=== PATIENT | female | born 1940 | race Two or more races ===

== ENCOUNTER 2018-07-06 12:05 | Inpatient (IN) | payer MEDICARE, MEDICAID ==
[2018-07-06] MEDS: INSULIN LISPRO 100 UNIT/ML VIAL SUBQ SCH (21:51)
[2018-07-06 22:33] LABS: % EOSINOPHILS 1.2 % (0.0-5.0); % LYMPHOCYTES 9.7 % (20.0-50.0); % MONOCYTES 5.7 % (2.0-10.0); % NEUTROPHILS 83.4 % (40.0-80.0); EOSINOPHILE ABSOLUTE 0.2 Th/cmm (0.1-0.4); HEMATOCRIT 32.4 % (41.0-60); HEMOGLOBIN 10.6 gm/dL (12-16); LYMPHOCYTE ABSOLUTE 1.4 Th/cmm (1.5-3.0); MEAN CELL VOLUME 80.8 fl (81-100); MEAN CORPUSCULAR HEMOGLOBIN 26.5 pg (27.0-31.0); MEAN CORPUSCULAR HGB CONC 32.8 pg (28.0-36.0); MEAN PLATELET VOLUME 8.5 fl; MONOCYTE ABSOLUTE 0.8 Th/cmm (0.3-1.0); NEUTROPHILE ABSOLUTE 11.6 Th/cmm (1.8-8.0); PLATELET COUNT 290 Th/cmm (150-400); RED BLOOD COUNT 4.01 Mil/cmm (3.80-5.20); RED CELL DISTRIBUTION WIDTH 24.4 % (11.5-20.0)
[2018-07-06] MEDS: D5-0.45NS 1,000 ML IV SCH (22:40)
[2018-07-06 22:49] LABS: ALB/GLOB RATIO 1.4 (1.0-1.8); ALBUMIN 3.5 gm/dL (3.7-5.3); ALKALINE PHOSPHATASE 77 U/L (34-104); ANION GAP 16.8 (7.0-16.0); BILIRUBIN,TOTAL 0.6 mg/dL (0.3-1.0); BUN - UREA NITROGEN 44 mg/dL (7-25); CHLORIDE 118 mEq/L (98-107); CREATININE - SERUM 1.9 mg/dL (0.6-1.2); GLUCOSE 142 mg/dL (70-105); POTASSIUM SERUM 3.8 mEq/L (3.5-5.1); SGOT 12 U/L (13-39); SGPT/ALT 11 U/L (7-52); SODIUM SERUM 150 mEq/L (136-145); TOTAL PROTEIN,SERUM 6.1 gm/dL (6.0-8.3)
[2018-07-06] MEDS: Vancomycin HCL 250 mg /10mL UDC PO SCH (23:10)
--- NOTE | 2018-07-07 00:07 | Progress Notes ---
DATE: 07/06/2018 SUBJECTIVE: The patient seen, chart reviewed, discussed with staff. The patient unfortunately decompensating medically, diarrhea, dehydration and transferred to the medical surgical unit, remains confused and disoriented. States "I feel like I'm dying." Generally confused, disoriented, does not know where she is or what is going on. Wearing mittens, taking the mittens off, staff having to watch her very closely. Rambling nonsensically, speaking in a mixture of Afghan, Farsi. ASSESSMENT: The patient disoriented, confused, restless, appearing somewhat delirious. PLAN: Treat underlying medical issues, continue to monitor. The patient does seem to be somewhat calmer on a dosing of Seroquel. We will continue to monitor and followup, follow alongside the primary medical team. JOB# [id number]
[2018-07-07] MEDS ORDERED: Magnesium Hydroxide (MOM) 30 mL UDC PO PRN (09:20)
--- NOTE | 2018-07-07 09:38 | History & Physical ---
ADMIT DATE: 07/06/2018 PATIENT IDENTIFICATION: A 77-year-old female. CHIEF COMPLAINT: Transferred to medical unit after noted to have abnormal labs for this patient. HISTORY OF PRESENT ILLNESS: A 77-year-old [place] German female admitted at geriatric psychiatric unit after the patient had a drug overdose and I was following this patient at [facility] for medical management where it was noted that the patient was having extremely poor p.o. intake with abnormal behavior. The patient was noted to have elevated sodium of 148 with creatinine of 1.8, which was substantially elevated from baseline. The patient was transferred to Geriatric Medical Floor after the patient needed to have management of medical illness, which cannot be managed at [facility]. The patient was also noted to have 4-5 bowel movements as well. PAST MEDICAL HISTORY: Remarkable for: 1. Chronic kidney disease. 2. Hypertension. 3. Hyperlipidemia. 4. DJD. 5. Diabetes mellitus. 6. Osteoporosis. 7. History of atrial fibrillation. 8. Diastolic dysfunction. MEDICATIONS: List has been reviewed and reconciled appropriately. ALLERGIES: THE PATIENT IS ALLERGIC TO ASPIRIN, CIPROFLOXACIN, LEVAQUIN AND PENICILLIN. SOCIAL HISTORY: The patient was residing in a [facility] prior to coming to the hospital. No smoking or alcohol use. FAMILY MEDICAL HISTORY: Unknown. REVIEW OF SYSTEMS: Unable to get meaningful history from the patient. PHYSICAL EXAMINATION: GENERAL: A 77-year-old, alert, awake, lying in the bed with talking to herself and not answering question appropriately today. VITAL SIGNS: Temperature is 99, pulse is 62, respiratory rate 18, blood pressure is 110/80. HEENT: Normocephalic, atraumatic. Extraocular muscles are intact. Multiple absent teeth noted. Tongue was pink and dry. NECK: Supple, no JVD. No hepatojugular reflux. No lymphadenopathy, thyromegaly or carotid bruit. HEART: Both heart sounds are irregularly irregular. Grade 2/6 systolic murmur noted. CHEST: Lung equal in expansion with no expiratory wheezing. ABDOMEN: Soft. No guarding, no rigidity. Bowel sounds present. No palpable mass. EXTREMITIES: No edema, no calf tenderness. NEUROLOGIC: Alert, awake, following commands, moving upper and lower extremities without any difficulty. AVAILABLE DIAGNOSTIC DATA: White count of 14, hemoglobin 10.6 and platelet count of 290. Sodium 150, potassium of 3.8, BUN and creatinine is 44 and 1.9, glucose of 148, albumin of 3.5. Stool for C. diff was reported was negative. CLINICAL IMPRESSION: 1. Hypernatremia. 2. Acute on chronic kidney disease. 3. Diarrhea. 4. Diabetes mellitus. 5. Hypertension. 6. History of atrial fibrillation. 7. History of cerebrovascular accident. 8. Degenerative joint disease. 9. Psychotic disorder 10. High risk for fall. 11. Osteoporosis. 12. Hyperlipidemia. PLAN: 1. The patient will be admitted to medical floor. 2. IV fluid. 3. Psych consult. 4. Nephrology consult. 5. Empirically vancomycin. 6. Repeat stool study. 7. Monitor labs. 8. Appropriate home medicine reconciliation. 9. General nursing care. 10. Care plan reviewed and discussed with staff. JOB# [id number]
[2018-07-07] MEDS: Vancomycin HCL 250 mg /10mL UDC PO SCH ×4 (10:06→22:24)
[2018-07-07] MEDS: INSULIN LISPRO 100 UNIT/ML VIAL SUBQ SCH (10:13)
[2018-07-07] MEDS: D5-0.45NS 1,000 ML IV SCH (13:13)
[2018-07-07] MEDS: Ferrous Sulfate 325 MG TAB PO SCH (16:09)
[2018-07-07] MEDS: Zinc Oxide Ointment 60 gm TP SCH (16:29)
[2018-07-07] MEDS ORDERED: Acetaminophen 160 MG/5 ML UDC PO PRN (21:25)
--- NOTE | 2018-07-08 00:43 | Progress Notes ---
DATE: 07/07/2018 SUBJECTIVE: A 77-year-old female currently in the Geropsych Unit, extremely poor p.o. intake, elevated sodium. The patient with history of chronic kidney disease, hypertension, hyperlipidemia, DJD, diabetes, osteoporosis, history of atrial fibrillation, and diastolic dysfunction. ALLERGIES: ASPIRIN, CIPRO, LEVAQUIN, PENICILLIN. On [id number], the patient is asking for help and noted to be confused, disoriented. The patient is currently confused, disoriented, yelling, in restrains, unruly, appears quite delirious. ASSESSMENT: Ongoing safety concerns, agitation. We will stop the Abilify. I will be titrating her dose of Seroquel. PLAN: We will attempt to reorient the patient today and we will attempt to get the patient out of restrains as soon as possible. I am trying to speak with the patient, but she is speaking in Malaysian just ruminative, asking for help over and over again. Unfortunately, I am not really able to have any sort of conversation with the patient either in Malaysian or in Farsi. JOB# [id number]
[2018-07-08 00:56] LABS: URINE SOURCE CATH
[2018-07-08 01:00] LABS: URINE BILIRUBIN NEGATIVE (NEGATIVE); URINE BLOOD MODERATE (NEGATIVE); URINE GLUCOSE (UA) NEGATIVE (NEGATIVE); URINE KETONE NEGATIVE (NEGATIVE); URINE LEUKOCYTE ESTERASE LARGE (NEGATIVE); URINE MICROSCOPIC INDICATED? YES; URINE NITRATE NEGATIVE (NEGATIVE); URINE PH 8.5 (4.6 - 8.0); URINE PROTEIN >=300 mg/dL (NEGATIVE)
[2018-07-08] MEDS: D5-0.45NS 1,000 ML IV SCH (04:07)
[2018-07-08 05:39] LABS: EOSINOPHIL SMEAR SOURCE URINE; EOSINOPHILS SMEAR COUNT NONE SEEN (NONE SEEN)
[2018-07-08 06:52] LABS: HEMATOCRIT 35.1 % (41.0-60); HEMOGLOBIN 11.2 gm/dL (12-16); MEAN CELL VOLUME 81.1 fl (81-100); MEAN CORPUSCULAR HEMOGLOBIN 25.8 pg (27.0-31.0); MEAN CORPUSCULAR HGB CONC 31.8 pg (28.0-36.0); MEAN PLATELET VOLUME 9.4 fl; PLATELET COUNT 279 Th/cmm (150-400); RED BLOOD COUNT 4.32 Mil/cmm (3.80-5.20); RED CELL DISTRIBUTION WIDTH 23.2 % (11.5-20.0)
[2018-07-08 07:37] LABS: ALB/GLOB RATIO 1.1 (1.0-1.8); ALBUMIN 3.6 gm/dL (3.7-5.3); ALKALINE PHOSPHATASE 78 U/L (34-104); ANION GAP 17.3 (7.0-16.0); BILIRUBIN,TOTAL 0.9 mg/dL (0.3-1.0); BUN - UREA NITROGEN 38 mg/dL (7-25); CALCIUM SERUM 9.1 mg/dL (8.6-10.3); CARBON DIOXIDE 20.1 mEq/L (21.0-31.0); CHLORIDE 116 mEq/L (98-107); CREATININE - SERUM 1.5 mg/dL (0.6-1.2); GLUCOSE 150 mg/dL (70-105); MAGNESIUM 1.8 mg/dL (1.9-2.7); PHOSPHOROUS 2.8 mg/dL (2.5-5.0); POTASSIUM SERUM 3.4 mEq/L (3.5-5.1); SGOT 13 U/L (13-39); SGPT/ALT 13 U/L (7-52); SODIUM SERUM 150 mEq/L (136-145); URIC ACID 8.2 mg/dL (2.3-6.6)
[2018-07-08 08:17] LABS: WHITE BLOOD COUNT 15.2 Th/cmm (4.8-10.8)
[2018-07-08] MEDS: INSULIN LISPRO 100 UNIT/ML VIAL SUBQ SCH (09:06)
[2018-07-08] MEDS: Ferrous Sulfate 325 MG TAB PO SCH ×2 (09:07→16:54)
[2018-07-08] MEDS: Pantoprazole 40 mg/Packet PO SCH (09:07)
[2018-07-08] MEDS: Vancomycin HCL 250 mg /10mL UDC PO SCH ×4 (09:21→21:22)
[2018-07-08 10:15] LABS: URINE CLARITY CLOUDY (CLEAR); URINE COLOR YELLOW
[2018-07-08 10:30] LABS: URINE EPITHELIAL CELLS NONE SEEN /lpf (FEW); URINE WBC 25-50 /hpf (0-5)
[2018-07-08 10:31] LABS: URINE BACTERIA MANY /hpf (NONE SEEN)
[2018-07-08 11:39] LABS: BAND NEUTROPHILE 0 % (0-10); BASOPHIL 0 % (0-3); EOSINOPHIL 1 % (0-5); LYMPHOCYTE 10 % (20-50); MONOCYTE 5 % (2-10); NEUTROPHILS 84 % (40-80)
[2018-07-08] MEDS: Potassium Chloride 20 mEq ER Tab PO ONE ×2 (14:06→14:13)
--- NOTE | 2018-07-08 14:13 | General Progress Note ---
Subjective - Review of Systems Service Date: 07/08/18 Subjective: sleeping, comfortable Objective - Results Result Diagrams: 07/08/18 06:05 07/08/18 06:05 Recent Labs: Laboratory Last Values WBC 15.2 Th/cmm (4.8-10.8) H 07/08/18 06:05 RBC 4.32 Mil/cmm (3.80-5.20) 07/08/18 06:05 Hgb 11.2 gm/dL (12-16) L 07/08/18 06:05 Hct 35.1 % (41.0-60) L 07/08/18 06:05 MCV 81.1 fl (81-100) 07/08/18 06:05 MCH 25.8 pg (27.0-31.0) L 07/08/18 06:05 MCHC Differential 31.8 pg (28.0-36.0) 07/08/18 06:05 RDW 23.2 % (11.5-20.0) H 07/08/18 06:05 Plt Count 279 Th/cmm (150-400) 07/08/18 06:05 MPV 9.4 fl 07/08/18 06:05 Add Manual Diff YES 07/08/18 06:05 Neutrophils % [employer]PERATOR 07/08/18 06:05 Band Neutrophils % 0 % (0-10) 07/08/18 06:05 Lymphocytes % [employer] OPERATOR 07/08/18 06:05 Monocytes % [employer] M[employer] OPERATOR 07/08/18 06:05 Eosinophils % [employer] OPERATOR 07/08/18 06:05 Basophils % [employer] OPERATOR 07/08/18 06:05 Neutrophils (Manual) 84 % (40-80) H 07/08/18 06:05 Lymphocytes 10 % (20-50) L 07/08/18 06:05 Monocytes 5 % (2-10) 07/08/18 06:05 Eosinophils 1 % (0-5) 07/08/18 06:05 Basophils 0 % (0-3) 07/08/18 06:05 Eos Smear Source URINE 07/08/18 00:00 Eos Smear Total Cells NONE SEEN (NONE SEEN) 07/08/18 00:00 Sodium 150 mEq/L (136-145) H 07/08/18 06:05 Potassium 3.4 mEq/L (3.5-5.1) L 07/08/18 06:05 Chloride 116 mEq/L (98-107) H 07/08/18 06:05 Carbon Dioxide 20.1 mEq/L (21.0-31.0) L 07/08/18 06:05 Anion Gap 17.3 (7.0-16.0) H 07/08/18 06:05 BUN 38 mg/dL (7-25) H 07/08/18 06:05 Creatinine 1.5 mg/dL (0.6-1.2) H 07/08/18 06:05 Est GFR ( Amer) TNP 07/08/18 06:05 Est GFR (Non-Af Amer) TNP 07/08/18 06:05 BUN/Creatinine Ratio 25.3 07/08/18 06:05 Glucose 150 mg/dL (70-105) H 07/08/18 06:05 POC Glucose 152 MG/DL (70 - 105) H 07/08/18 09:06 Uric Acid 8.2 mg/dL (2.3-6.6) H 07/08/18 06:05 Calcium 9.1 mg/dL (8.6-10.3) 07/08/18 06:05 Phosphorus 2.8 mg/dL (2.5-5.0) 07/08/18 06:05 Magnesium 1.8 mg/dL (1.9-2.7) L 07/08/18 06:05 Total Bilirubin 0.9 mg/dL (0.3-1.0) 07/08/18 06:05 AST 13 U/L (13-39) 07/08/18 06:05 ALT 13 U/L (7-52) 07/08/18 06:05 Alkaline Phosphatase 78 U/L (34-104) 07/08/18 06:05 Total Protein 7.0 gm/dL (6.0-8.3) 07/08/18 06:05 Albumin 3.6 gm/dL (3.7-5.3) L 07/08/18 06:05 Globulin 3.4 gm/dL 07/08/18 06:05 Albumin/Globulin Ratio 1.1 (1.0-1.8) 07/08/18 06:05 TSH 0.64 uIU/ml (0.34-5.60) 07/08/18 06:05 Urine Source CATH 07/08/18 00:00 Urine Color YELLOW 07/08/18 00:00 Urine Clarity CLOUDY (CLEAR) H 07/08/18 00:00 Urine pH 8.5 (4.6 - 8.0) 07/08/18 00:00 Ur Specific [place] <= 1.005 (1.005-1.030) 07/08/18 00:00 Urine Protein >=300 mg/dL (NEGATIVE) 07/08/18 00:00 Urine Glucose (UA) NEGATIVE mg/dL (NEGATIVE) 07/08/18 00:00 Urine Ketones NEGATIVE mg/dL (NEGATIVE) 07/08/18 00:00 Urine Blood MODERATE (NEGATIVE) H 07/08/18 00:00 Urine Nitrate NEGATIVE (NEGATIVE) 07/08/18 00:00 Urine Bilirubin NEGATIVE (NEGATIVE) 07/08/18 00:00 Urine Urobilinogen 1.0 E.U./dL (0.2 - 1.0) 07/08/18 00:00 Ur Leukocyte Esterase LARGE (NEGATIVE) H 07/08/18 00:00 Urine RBC 2-5 /hpf (0-5) 07/08/18 00:00 Urine WBC 25-50 /hpf (0-5) H 07/08/18 00:00 Ur Epithelial Cells NONE SEEN /lpf (FEW) 07/08/18 00:00 Urine Bacteria MANY /hpf (NONE SEEN) H 07/08/18 00:00 Ur Random Sodium 49 mmol/L 07/08/18 00:00 Urine Creatinine 309.0 mg/dl (28.0-217.0) H 07/08/18 00:00 - Physical Exam Vitals and I&O: Vital Signs Temp 98.7 F 07/08/18 11:54 Pulse 63 07/08/18 11:54 Resp 19 07/08/18 11:54 BP 167/58 07/08/18 11:54 Pulse Ox 96 07/08/18 11:54 Intake & Output 07/07/18 07/08/18 07/08/18 18:59 06:59 18:59 Intake Total 1250 1060 Output Total 80 Balance 1250 980 Weight (lbs) 64.274 kg 45.359 kg Intake: Intake, IV Amount 1000 1000 D5-0.45NS 1,000 ml @ 70 1000 1000 mls/hr IV .[id number] [facility] Rx #:[id number] Oral 250 60 Output: Urine 80 Other: # Voids 3 # Bowel Movements 3 Stool Characteristics Soft Soft Liquid Liquid Brown Brown Weight Source Bedscale Estimated Active Medications: Current Medications Acetaminophen (Tylenol Children) 320 mg PO Q6H PRN PRN Reason: Pain (Mild) Stop: 09/05/18 21:24 Atorvastatin Calcium (Lipitor) 80 mg PO HS [facility]; Protocol Stop: 09/05/18 20:59 Last Admin: 07/07/18 22:24 Dose: 80 mg Cholecalciferol (Vitamin D3) 2,000 iu PO DAILY [facility] Stop: 09/06/18 08:59 Last Admin: 07/08/18 09:07 Dose: 2,000 iu Citric Acid/Sodium Citrate (Bicitra) 30 ml PO DAILY [facility] Stop: 09/05/18 19:29 Last Admin: 07/08/18 14:02 Dose: Not Given Clopidogrel Bisulfate (Plavix) 75 mg PO DAILY [facility] Stop: 09/06/18 08:59 Last Admin: 07/08/18 09:07 Dose: 75 mg Dextrose (Glutose 40%) 18.75 gm PO PRN PRN PRN Reason: Blood Glucose less than 70 Stop: 09/05/18 09:19 Ferrous Sulfate (Iron) 325 mg PO BID [facility] Stop: 09/05/18 16:59 Last Admin: 07/08/18 09:07 Dose: 325 mg Dextrose (D5w) 1,000 mls @ 75 mls/hr IV .[id number] [facility] Stop: 09/06/18 13:59 Insulin Human Lispro (Humalog) 0 unit SUBQ DAILY [facility]; Protocol Stop: 09/04/18 20:29 Last Admin: 07/08/18 09:06 Dose: Not Given Lamotrigine (Lamictal) 50 mg PO DAILY [facility]; Protocol Stop: 09/06/18 08:59 Last Admin: 07/08/18 09:07 Dose: 50 mg Lorazepam (Ativan) 0.5 mg PO Q4HR PRN; Protocol PRN Reason: Anxiety Stop: 09/05/18 09:19 Magnesium Hydroxide (Milk Of Magnesia) 30 ml PO HS PRN PRN Reason: Constipation Stop: 09/05/18 09:19 Pantoprazole Sodium (Protonix) 40 mg PO DAILY [facility] Stop: 09/06/18 08:59 Last Admin: 07/08/18 09:07 Dose: 40 mg Petrolatum (Zinc Oxide) 1 appl TP BID [facility] Stop: 09/05/18 16:59 Last Admin: 07/07/18 16:29 Dose: 1 appl Quetiapine Fumarate (Seroquel) 25 mg PO BID [facility]; Protocol Stop: 09/05/18 16:59 Last Admin: 07/08/18 09:06 Dose: 25 mg Thiamine HCl (Vitamin B1) 100 mg PO DAILY [facility] Stop: 09/06/18 08:59 Last Admin: 07/08/18 09:07 Dose: 100 mg Vancomycin HCl (Vancomycin Oral) 250 mg PO QID [facility] Stop: 09/04/18 20:59 Last Admin: 07/08/18 09:21 Dose: 250 mg Zolpidem Tartrate (Ambien) 5 mg PO HS PRN PRN Reason: Insomnia Stop: 09/05/18 09:19 General: No acute distress HEENT: Atraumatic, Mucous membr. moist/pink Neck: Supple, +2 carotid pulse wo bruit Cardiovascular: Regular rate, Normal S1, Normal S2 Lungs: Clear to auscultation Abdomen: Bowel sounds, Soft Extremities: no Edema Neurological: Sensation intact Skin: no Rash Psych/Mental Status: Mood NL Assessment/Plan - Assessment Assessment: SHEILA on CKD T2DM DJD Psychosis Microcytic Anemia - Plan Plan: Lab - Result Diagrams 07/08/18 06:05 07/08/18 06:05 Current Medications Acetaminophen (Tylenol Children) 320 mg PO Q6H PRN PRN Reason: Pain (Mild) Stop: 09/05/18 21:24 Atorvastatin Calcium (Lipitor) 80 mg PO HS [facility]; Protocol Stop: 09/05/18 20:59 Last Admin: 07/07/18 22:24 Dose: 80 mg Cholecalciferol (Vitamin D3) 2,000 iu PO DAILY [facility] Stop: 09/06/18 08:59 Last Admin: 07/08/18 09:07 Dose: 2,000 iu Citric Acid/Sodium Citrate (Bicitra) 30 ml PO DAILY [facility] Stop: 09/05/18 19:29 Last Admin: 07/08/18 14:02 Dose: Not Given Clopidogrel Bisulfate (Plavix) 75 mg PO DAILY [facility] Stop: 09/06/18 08:59 Last Admin: 07/08/18 09:07 Dose: 75 mg Dextrose (Glutose 40%) 18.75 gm PO PRN PRN PRN Reason: Blood Glucose less than 70 Stop: 09/05/18 09:19 Ferrous Sulfate (Iron) 325 mg PO BID [facility] Stop: 09/05/18 16:59 Last Admin: 07/08/18 09:07 Dose: 325 mg Dextrose (D5w) 1,000 mls @ 75 mls/hr IV .[id number] [facility] Stop: 09/06/18 13:59 Insulin Human Lispro (Humalog) 0 unit SUBQ DAILY [facility]; Protocol Stop: 09/04/18 20:29 Last Admin: 07/08/18 09:06 Dose: Not Given Lamotrigine (Lamictal) 50 mg PO DAILY [facility]; Protocol Stop: 09/06/18 08:59 Last Admin: 07/08/18 09:07 Dose: 50 mg Lorazepam (Ativan) 0.5 mg PO Q4HR PRN; Protocol PRN Reason: Anxiety Stop: 09/05/18 09:19 Magnesium Hydroxide (Milk Of Magnesia) 30 ml PO HS PRN PRN Reason: Constipation Stop: 09/05/18 09:19 Pantoprazole Sodium (Protonix) 40 mg PO DAILY [facility] Stop: 09/06/18 08:59 Last Admin: 07/08/18 09:07 Dose: 40 mg Petrolatum (Zinc Oxide) 1 appl TP BID [facility] Stop: 09/05/18 16:59 Last Admin: 07/07/18 16:29 Dose: 1 appl Quetiapine Fumarate (Seroquel) 25 mg PO BID [facility]; Protocol Stop: 09/05/18 16:59 Last Admin: 07/08/18 09:06 Dose: 25 mg Thiamine HCl (Vitamin B1) 100 mg PO DAILY [facility] Stop: 09/06/18 08:59 Last Admin: 07/08/18 09:07 Dose: 100 mg Vancomycin HCl (Vancomycin Oral) 250 mg PO QID [facility] Stop: 09/04/18 20:59 Last Admin: 07/08/18 09:21 Dose: 250 mg Zolpidem Tartrate (Ambien) 5 mg PO HS PRN PRN Reason: Insomnia Stop: 09/05/18 09:19 Lab - Result Diagrams 07/08/18 06:05 07/08/18 06:05 Kidney fnc gradually improving w/ BUN/CR of 38/1.5 Stool for C. diff negative per nurse switch to D5W refusing lunch & meds UA suggestive of UTI start Rocephin
[2018-07-08] MEDS ORDERED: Potassium Phosphate 20 MMOLE in Sodium Chloride 0.9% 250 ML IV ONE (14:25)
[2018-07-08] MEDS: Dextrose 5% 1,000 ML IV SCH (14:48)
--- NOTE | 2018-07-08 15:02 | Consultation ---
DATE OF CONSULTATION: 07/07/2018 ATTENDING PHYSICIAN: Steven William M.D. REASON FOR CONSULTATION: Electrolyte imbalance, fluid management and worsening kidney function. HISTORY OF PRESENT ILLNESS: This is a 77-year-old Afghan female with past medical history of chronic kidney disease, who was transferred from [facility] to [facility] because of abnormal labs. The patient was admitted at [facility] Unit because of drug overdose a few hours prior to admission, her oral intake had significantly diminished, along with development of diarrhea. She became more aggressive, restless, agitated, confused and disoriented. Labs drawn revealed a sodium of 148 and creatinine of 1.8. Thus, she was transferred to [facility] for further medical management. Her sodium level was 150, BUN/creatinine of 44/1.9 and CO2 of 19. White count was 14. PAST MEDICAL HISTORY: 1. Chronic kidney disease. 2. Essential hypertension. 3. Dyslipidemia. 4. DJD. 5. Type 2 diabetes mellitus. 6. Osteoporosis. 7. Chronic atrial fibrillation. 8. Compensated CHF with diastolic dysfunction. 9. History of psychosis. CURRENT MEDICATIONS: She is currently on acetaminophen, Abilify, atorvastatin, clopidogrel, ferrous sulfate, lamotrigine, Ativan, magnesium hydroxide, Protonix, quetiapine fumarate, thiamine, vancomycin, zinc oxide, zolpidem. ALLERGIES: ALLERGIC TO ASPIRIN, CIPROFLOXACIN. SOCIAL AND FAMILY HISTORY: I was not able to obtain directly from the patient because the patient mumbling both in Farsi as well as some in Sammarinese. REVIEW OF SYSTEMS: Again, I was not able to decipher from the patient because of the same reason. PHYSICAL EXAMINATION: GENERAL: The patient is awake, mumbling, not in any form of distress. VITAL SIGNS: Blood pressure is 143/57, pulse 52, temperature is 97.9 degrees. SKIN: Poor turgor, warm, no rash, no jaundice appreciated. HEENT: Head normocephalic, atraumatic. Eyes: Extraocular muscles intact, unable to assess pupils because the patient uncooperative. Anicteric sclerae. Nose: Midline nasal septum. Mouth: Dry mucosa. Poor dentition. NECK: Supple, no adenopathy, unable to assess for any bruits, no thyromegaly. CARDIOVASCULAR: S1, S2. No rub, but she does have a systolic murmur; point of maximal impulse fifth intercostal space, left midclavicular line. No abdominal or femoral bruits appreciated. LUNGS: Equal expansion, no use of accessory muscles. No supraclavicular retractions. Decreased breath sounds, few rhonchi, but no rales nor wheezes appreciated. BREASTS: Symmetrical without any discharge. ABDOMEN: Flat, soft, positive for bowel sounds. No bruits either diastolic or systolic. No pulsating mass. RECTAL: Deferred. GENITOURINARY: Normal appearing female genitalia. MUSCULOSKELETAL: No effusions present in her joints, but unable to assess her range of motion. EXTREMITIES: She has no evidence of edema, cyanosis nor clubbing, but unable to appreciate her pulses. NEUROLOGIC: As mentioned, the patient just kept on mumbling and rambling, so she refused to participate with neuro exam. LABORATORY DATA: Did reveal white count 14, hemoglobin 10.6, hematocrit 32.4, platelets 290. Sodium 150, potassium 3.8, chloride 118, CO2 is 19, BUN is 44, creatinine is 1.9, calcium 9, albumin 3.5. IMPRESSION: 1. Hypernatremia, possibly secondary to dehydration. 2. Acute kidney injury on chronic kidney disease. Chronic kidney disease likely secondary to diabetic nephropathy with longstanding history of diabetes and may have some underlying hypertensive nephrosclerosis. Acute kidney injury in this particular case is initially prerenal. As based on history, the patient has not been drinking fluids to replenish both sensible and insensible fluid losses, she also has ongoing diarrhea. Physical exam revealed poor skin turgor with dry oral mucosa. These are all suggestive of some underlying dehydration. Thus her prerenal azotemia may have progressed to acute tubular injury. 3. Psychosis. 4. Moderate malnutrition. 5. Anion gap metabolic acidosis with non-gap acidosis. 6. Bradycardia, etiology unknown. 7. Anemia of chronic disease. 8. Essential hypertension. 9. Dyslipidemia. 10. Degenerative joint disease. 11. Type 2 diabetes mellitus. 12. Osteoporosis. 13. Chronic atrial fibrillation. 14. Compensated congestive heart failure with diastolic dysfunction. PLAN: 1. Agree with IV hydration. 2. Encourage p.o. fluid intake. 3. Urinalysis. 4. Urine spot sodium, eosinophils, and creatinine. 5. Urine microalbumin to creatinine ratio. 6. Consider renal ultrasound if kidney function worsens because of difficulty of getting an ultrasound due to patient's behavior. 7. Start the patient on Bicitra. 8. Follow up electrolytes, urinalysis as well as TSH level. [facility]# [id number]
[2018-07-08] MEDS: Zinc Oxide Ointment 60 gm TP SCH (18:48)
[2018-07-09] MEDS: Dextrose 5% 1,000 ML IV SCH ×3 (01:46→17:14)
[2018-07-09 06:54] LABS: % EOSINOPHILS 0.4 % (0.0-5.0); % LYMPHOCYTES 8.7 % (20.0-50.0); % MONOCYTES 6.1 % (2.0-10.0); % NEUTROPHILS 84.8 % (40.0-80.0); EOSINOPHILE ABSOLUTE 0.1 Th/cmm (0.1-0.4); LYMPHOCYTE ABSOLUTE 1.3 Th/cmm (1.5-3.0); MEAN CELL VOLUME 81.4 fl (81-100); MEAN CORPUSCULAR HEMOGLOBIN 26.3 pg (27.0-31.0); MEAN CORPUSCULAR HGB CONC 32.3 pg (28.0-36.0); MEAN PLATELET VOLUME 9.1 fl; MONOCYTE ABSOLUTE 0.9 Th/cmm (0.3-1.0); PLATELET COUNT 286 Th/cmm (150-400); RED BLOOD COUNT 3.81 Mil/cmm (3.80-5.20); RED CELL DISTRIBUTION WIDTH 23.9 % (11.5-20.0)
--- NOTE | 2018-07-09 06:56 | Progress Notes ---
DATE: 07/08/2018 PATIENT'S IDENTIFICATION: A 77-year-old. SUBJECTIVE: The patient is seen and examined. The patient is lying in the bed. The patient has a very poor intake, diarrhea is still persistent, unable to get meaningful history from the patient. OBJECTIVE: VITAL SIGNS: On exam; temperature 98.7, pulse 63, respiratory rate 18, blood pressure 167/58. HEENT: No facial asymmetry. NECK: Supple. No JVD. HEART: Regular. CHEST: Lung equal in expansion, no expiratory wheezing. ABDOMEN: Soft. No guarding. No rigidity. Bowel sounds present. No palpable mass. EXTREMITIES: No edema. AVAILABLE DIAGNOSTIC DATA: Sodium 150, potassium 3.4, chloride 116, CO2 20.1, BUN and creatinine is 38 and 1.5. White count of 15.2, hemoglobin 11.2. CLINICAL IMPRESSIONS: 1. Hypernatremia. 2. Acute kidney injury. 3. Chronic kidney disease stage 3. 4. Diabetes mellitus. 5. Psychotic disorder. 6. Degenerative joint disease. 7. Chronic atrial fibrillation. 8. Debility. 9. Decline in self-care and mobility. PLAN: 1. Continue IV hydration. 2. Monitor lab. 3. Chronic kidney disease management. 4. Diabetes management. 5. General nursing care. 6. Follow lab. 7. Follow statistical consultant recommendation. 8. Care plan reviewed and discussed with staff. JOB# [id number]
[2018-07-09 06:59] LABS: WHITE BLOOD COUNT 15.3 Th/cmm (4.8-10.8)
[2018-07-09 07:00] LABS: ALB/GLOB RATIO 1.1 (1.0-1.8); ALBUMIN 3.2 gm/dL (3.7-5.3); ALKALINE PHOSPHATASE 70 U/L (34-104); ANION GAP 12.8 (7.0-16.0); BILIRUBIN,TOTAL 0.8 mg/dL (0.3-1.0); BUN - UREA NITROGEN 33 mg/dL (7-25); CALCIUM SERUM 8.5 mg/dL (8.6-10.3); CARBON DIOXIDE 20.9 mEq/L (21.0-31.0); CHLORIDE 116 mEq/L (98-107); CREATININE - SERUM 1.3 mg/dL (0.6-1.2); GLUCOSE 141 mg/dL (70-105); POTASSIUM SERUM 3.7 mEq/L (3.5-5.1); SGOT 11 U/L (13-39); SGPT/ALT 12 U/L (7-52); SODIUM SERUM 146 mEq/L (136-145); TOTAL PROTEIN,SERUM 6.2 gm/dL (6.0-8.3)
--- NOTE | 2018-07-09 09:00 | Internal Medicine Prog Note ---
Internal Medicine Subjective - Subjective Service Date: 07/09/18 Patient seen and examined:: with staff, chart reviewed Patient is:: awake, verbal, in bed, agitated, other (unable to understand.) Patient Complaints of:: other (unable to understand.) Per staff patient has:: poor oral intake, other (still has dirrhea.) Internal Medicine Objective - Results Result Diagrams: 07/09/18 06:25 07/09/18 06:25 Recent Labs: Laboratory Last Values WBC 15.3 Th/cmm (4.8-10.8) H 07/09/18 06:25 RBC 3.81 Mil/cmm (3.80-5.20) 07/09/18 06:25 Hgb 10.0 gm/dL (12-16) L 07/09/18 06:25 Hct 31.0 % (41.0-60) L 07/09/18 06:25 MCV 81.4 fl (81-100) 07/09/18 06:25 MCH 26.3 pg (27.0-31.0) L 07/09/18 06:25 MCHC Differential 32.3 pg (28.0-36.0) 07/09/18 06:25 RDW 23.9 % (11.5-20.0) H 07/09/18 06:25 Plt Count 286 Th/cmm (150-400) 07/09/18 06:25 MPV 9.1 fl 07/09/18 06:25 Add Manual Diff YES 07/08/18 06:05 Neutrophils % 84.8 % (40.0-80.0) H 07/09/18 06:25 Band Neutrophils % 0 % (0-10) 07/08/18 06:05 Lymphocytes % 8.7 % (20.0-50.0) L 07/09/18 06:25 Monocytes % 6.1 % (2.0-10.0) 07/09/18 06:25 Eosinophils % 0.4 % (0.0-5.0) 07/09/18 06:25 Basophils % 0.0 % (0.0-2.0) 07/09/18 06:25 Neutrophils (Manual) 84 % (40-80) H 07/08/18 06:05 Lymphocytes 10 % (20-50) L 07/08/18 06:05 Monocytes 5 % (2-10) 07/08/18 06:05 Eosinophils 1 % (0-5) 07/08/18 06:05 Basophils 0 % (0-3) 07/08/18 06:05 Eos Smear Source URINE 07/08/18 00:00 Eos Smear Total Cells NONE SEEN (NONE SEEN) 07/08/18 00:00 Sodium 146 mEq/L (136-145) H 07/09/18 06:25 Potassium 3.7 mEq/L (3.5-5.1) 07/09/18 06:25 Chloride 116 mEq/L (98-107) H 07/09/18 06:25 Carbon Dioxide 20.9 mEq/L (21.0-31.0) L 07/09/18 06:25 Anion Gap 12.8 (7.0-16.0) 07/09/18 06:25 BUN 33 mg/dL (7-25) H 07/09/18 06:25 Creatinine 1.3 mg/dL (0.6-1.2) H 07/09/18 06:25 Est GFR ( Amer) TNP 07/09/18 06:25 Est GFR (Non-Af Amer) TNP 07/09/18 06:25 BUN/Creatinine Ratio 25.4 07/09/18 06:25 Glucose 141 mg/dL (70-105) H 07/09/18 06:25 POC Glucose 152 MG/DL (70 - 105) H 07/08/18 09:06 Uric Acid 8.2 mg/dL (2.3-6.6) H 07/08/18 06:05 Calcium 8.5 mg/dL (8.6-10.3) L 07/09/18 06:25 Phosphorus 2.8 mg/dL (2.5-5.0) 07/08/18 06:05 Magnesium 1.8 mg/dL (1.9-2.7) L 07/08/18 06:05 Total Bilirubin 0.8 mg/dL (0.3-1.0) 07/09/18 06:25 AST 11 U/L (13-39) L 07/09/18 06:25 ALT 12 U/L (7-52) 07/09/18 06:25 Alkaline Phosphatase 70 U/L (34-104) 07/09/18 06:25 Total Protein 6.2 gm/dL (6.0-8.3) 07/09/18 06:25 Albumin 3.2 gm/dL (3.7-5.3) L 07/09/18 06:25 Globulin 3.0 gm/dL 07/09/18 06:25 Albumin/Globulin Ratio 1.1 (1.0-1.8) 07/09/18 06:25 TSH 0.64 uIU/ml (0.34-5.60) 07/08/18 06:05 Urine Source CATH 07/08/18 00:00 Urine Color YELLOW 07/08/18 00:00 Urine Clarity CLOUDY (CLEAR) H 07/08/18 00:00 Urine pH 8.5 (4.6 - 8.0) 07/08/18 00:00 Ur Specific [place] <= 1.005 (1.005-1.030) 07/08/18 00:00 Urine Protein >=300 mg/dL (NEGATIVE) 07/08/18 00:00 Urine Glucose (UA) NEGATIVE mg/dL (NEGATIVE) 07/08/18 00:00 Urine Ketones NEGATIVE mg/dL (NEGATIVE) 07/08/18 00:00 Urine Blood MODERATE (NEGATIVE) H 07/08/18 00:00 Urine Nitrate NEGATIVE (NEGATIVE) 07/08/18 00:00 Urine Bilirubin NEGATIVE (NEGATIVE) 07/08/18 00:00 Urine Urobilinogen 1.0 E.U./dL (0.2 - 1.0) 07/08/18 00:00 Ur Leukocyte Esterase LARGE (NEGATIVE) H 07/08/18 00:00 Urine RBC 2-5 /hpf (0-5) 07/08/18 00:00 Urine WBC 25-50 /hpf (0-5) H 07/08/18 00:00 Ur Epithelial Cells NONE SEEN /lpf (FEW) 07/08/18 00:00 Urine Bacteria MANY /hpf (NONE SEEN) H 07/08/18 00:00 Ur Random Sodium 49 mmol/L 07/08/18 00:00 Urine Creatinine 309.0 mg/dl (28.0-217.0) H 07/08/18 00:00 - Physical Exam Vitals and I&O: Vital Signs Temp 99.0 F 07/09/18 05:00 Pulse 59 07/09/18 05:00 Resp 18 07/09/18 05:00 BP 136/79 07/09/18 05:00 Pulse Ox 96 07/09/18 04:00 Intake & Output 07/08/18 07/09/18 07/09/18 18:59 06:59 18:59 Intake Total 60 Output Total 4 Balance 56 Weight (lbs) 64.954 kg 64.954 kg Intake: Oral 60 Output: Urine 2 Stool 2 Other: # Voids 3 # Bowel Movements 2 Stool Characteristics Soft Soft Liquid Liquid Brown Brown Weight Source Bedscale Bedscale Active Medications: Current Medications Acetaminophen (Tylenol Children) 320 mg PO Q6H PRN PRN Reason: Pain (Mild) Stop: 09/05/18 21:24 Atorvastatin Calcium (Lipitor) 80 mg PO HS [facility]; Protocol Stop: 09/05/18 20:59 Last Admin: 07/08/18 21:21 Dose: Not Given Cholecalciferol (Vitamin D3) 2,000 iu PO DAILY [facility] Stop: 09/06/18 08:59 Last Admin: 07/08/18 09:07 Dose: 2,000 iu Citric Acid/Sodium Citrate (Bicitra) 30 ml PO DAILY [facility] Stop: 09/05/18 19:29 Last Admin: 07/08/18 14:02 Dose: Not Given Clopidogrel Bisulfate (Plavix) 75 mg PO DAILY [facility] Stop: 09/06/18 08:59 Last Admin: 07/08/18 09:07 Dose: 75 mg Dextrose (Glutose 40%) 18.75 gm PO PRN PRN PRN Reason: Blood Glucose less than 70 Stop: 09/05/18 09:19 Ferrous Sulfate (Iron) 325 mg PO BID [facility] Stop: 09/05/18 16:59 Last Admin: 07/08/18 16:54 Dose: Not Given Dextrose (D5w) 1,000 mls @ 75 mls/hr IV .[id number] [facility] Stop: 09/06/18 13:59 Last Admin: 07/09/18 01:46 Dose: 75 mls/hr Ceftriaxone Sodium 1 gm/ (Dextrose) 50 mls @ 100 mls/hr IV Q24H [facility] Stop: 09/06/18 14:14 Last Admin: 07/08/18 14:37 Dose: 100 mls/hr Insulin Human Lispro (Humalog) 0 unit SUBQ DAILY [facility]; Protocol Stop: 09/04/18 20:29 Last Admin: 07/08/18 09:06 Dose: Not Given Lamotrigine (Lamictal) 50 mg PO DAILY [facility]; Protocol Stop: 09/06/18 08:59 Last Admin: 07/08/18 09:07 Dose: 50 mg Lorazepam (Ativan) 0.5 mg PO Q4HR PRN; Protocol PRN Reason: Anxiety Stop: 09/05/18 09:19 Magnesium Hydroxide (Milk Of Magnesia) 30 ml PO HS PRN PRN Reason: Constipation Stop: 09/05/18 09:19 Nystatin (Nystatin) 100,000 units PO TID [facility] Stop: 09/07/18 08:59 Pantoprazole Sodium (Protonix) 40 mg PO DAILY [facility] Stop: 09/06/18 08:59 Last Admin: 07/08/18 09:07 Dose: 40 mg Petrolatum (Zinc Oxide) 1 appl TP BID [facility] Stop: 09/05/18 16:59 Last Admin: 07/08/18 18:48 Dose: Not Given Quetiapine Fumarate (Seroquel) 25 mg PO BID [facility]; Protocol Stop: 09/05/18 16:59 Last Admin: 07/08/18 16:54 Dose: Not Given Thiamine HCl (Vitamin B1) 100 mg PO DAILY [facility] Stop: 09/06/18 08:59 Last Admin: 07/08/18 09:07 Dose: 100 mg Vancomycin HCl (Vancomycin Oral) 250 mg PO QID [facility] Stop: 09/04/18 20:59 Last Admin: 07/08/18 21:22 Dose: Not Given Zolpidem Tartrate (Ambien) 5 mg PO HS PRN PRN Reason: Insomnia Stop: 09/05/18 09:19 General: alert, thin HEENT: NC/AT, PERRLA, EOMI, poor dentition Neck: Supple, No JVD, No thyromegaly Lungs: CTAB Cardiovascular: Normal S1, Normal S2 Abdomen: soft, positive bowel sound Extremities: clear, pedal pulses Neurological: alert Other physical findings: Excoriartion around perineal area. Internal Medicine Assmt/Plan - Assessment Assessment: Hypernatremia Acute kidney injury. Diarrhea. Psych disorder. Diabetes. Hypertension. Chronic A Fib. Dermatitis and varghese due to diarrhea. Alzheimer's Dementia. S/P drug overdose. DJD Debility. Fall risk. - Plan Plan: IVF. Psych follow up. Renal consult. Follow lab. General nursing care. Diabetes management. Chronic disease management. Symptoms control. Medication management. PT and OT. Dysphagia diet. Repeat stool for c diff. PO vancomycin. Locally Nystain ointment. Continue current care. Discussed with staff. Nutritional Asmnt/Malnutr-PDOC - Dietary Evaluation Malnutrition Findings (Please click <Entered> for more info): Nutritional Asmnt/Malnutrition Start: 07/08/18 15: 04 Text: Status: Complete Freq: Protocol: Document 07/08/18 15:04 LCHENG (Rec: 07/08/18 15:39 LCHENG [email or web address]) Nutritional Asmnt/Malnutrition Patient General Information Nutritional Screening High Risk Diagnosis dehydration Pertinent Medical Hx/Surgical Hx CKD, HTN, hyperlipidemia, DJD, DM, osteoporosis, a fib, distolic dysfunction Subjective Information Pt seen in bed on restrains, agitated and confused. Per nurse note, pt refused PO potassium. According to EMR, pt consumed 75% x 2 meals yesterday. Current Diet Order/ Nutrition Support pureed, nectar thick liquid Pertinent Medications lipitor, vit D3, iron, humalog , D5w, lamictal, protonix, k phos, vit B1, vancomycin Pertinent Labs 07/08 Na 150, K 3.4, Cl 116, BUN 38, Cr 1.5, Glu 150, POC 152 07/06 Na 150, Cl 118, BUN 44, Cr 1.9, Glu 142, POC 148 Nutritional Hx/Data Height 1.57 m Height (Calculated Centimeters) 157.5 Current Weight (lbs) 45.359 kg Weight (Calculated Kilograms) 45.4 Weight (Calculated Grams) 68187.2 [place] Body Weight 110 Body Mass Index (BMI) 18.3 Weight Status Underweight GI Symptoms GI Symptoms None Last BM 07/07 x 3 Difficult in: None Skin Integrity/Comment: intact. yarelis 14 Current %PO Good (75-100%) Estimated Nutritional Goals BEE in Kcals: Using Current wt Calories/Kcals/Kg 27-32 Kcals Calculated 8872-5509 Protein: Using Current wt Protein g/k Protein Calculated 50 Fluid: ml 1215-1440ml (1ml/kcal) Nutritional Problem 1. Problem Problem altered nutrition related labs Etiology electrolytes/fluid imbalance, hyperglycemia Signs/Symptoms: Na 150, K 3.4, Cl 116, BUN 38, Cr 1.5, Glu 150, POC 152 Malnutrition Alert Is there a minimum of two criteria No selected? Query Text:Check all the applicable criteria. A minimum of two criteria are recommended for diagnosis of either severe or non-severe malnutrition. Malnutrition Related to Morbid Obesity Malnutrition related to morbid obesity No Intervention/Recommendation Comments 1. Continue with pureed nectar thick diet as ordered. Recommend to add CCHO-60gm diet for optimal glycemic control. 2. Monitor PO intake, wt, labs and skin integrity 3. F/U as high risk in 2-3 days Expected Outcomes/Goals Expected Outcomes/Goals 1. PO intake to meet at least 75% of nutritional needs. 2. Wt stability, skin to remain intact, labs to approach WNL.
[2018-07-09] MEDS: Zinc Oxide Ointment 60 gm TP SCH ×2 (09:15→17:16)
[2018-07-09] MEDS: Ferrous Sulfate 325 MG TAB PO SCH ×2 (09:46→17:18)
[2018-07-09] MEDS: Pantoprazole 40 mg/Packet PO SCH (09:46)
[2018-07-09] MEDS: INSULIN LISPRO 100 UNIT/ML VIAL SUBQ SCH (09:46)
[2018-07-09] MEDS: Vancomycin HCL 250 mg /10mL UDC PO SCH ×4 (09:51→20:55)
[2018-07-09] MEDS: NYSTATIN 100000 UNITS/GM POWD TP SCH ×3 (10:30→20:59)
--- NOTE | 2018-07-09 12:40 | Progress Notes ---
DATE: 07/08/2018 The patient is currently in the Med-Surg Unit, still appearing quite delirious, in restraints, AO to name only. She has no idea where she is. She does not know what is going on. She is very confused, disoriented. Attempted to speak with her in [place] as well as in [place]ars[place], but she has no idea where she is. She only knows her name, she does not know where she is or what is going on. I did speak with nursing staff, ongoing diarrhea. The patient moving around a lot, unable to be cared for out of restraints. Recommend avoidance of opiates. Recommend avoidance of benzodiazepines. Treat underlying infection. Continue Seroquel, consider dose increase of Seroquel. JOB# [id number]
--- NOTE | 2018-07-09 14:46 | General Progress Note ---
Subjective - Review of Systems Service Date: 07/09/18 Subjective: sleeping, comfortable Objective - Results Result Diagrams: 07/09/18 06:25 07/09/18 06:25 Recent Labs: Laboratory Last Values WBC 15.3 Th/cmm (4.8-10.8) H 07/09/18 06:25 RBC 3.81 Mil/cmm (3.80-5.20) 07/09/18 06:25 Hgb 10.0 gm/dL (12-16) L 07/09/18 06:25 Hct 31.0 % (41.0-60) L 07/09/18 06:25 MCV 81.4 fl (81-100) 07/09/18 06:25 MCH 26.3 pg (27.0-31.0) L 07/09/18 06:25 MCHC Differential 32.3 pg (28.0-36.0) 07/09/18 06:25 RDW 23.9 % (11.5-20.0) H 07/09/18 06:25 Plt Count 286 Th/cmm (150-400) 07/09/18 06:25 MPV 9.1 fl 07/09/18 06:25 Add Manual Diff YES 07/08/18 06:05 Neutrophils % 84.8 % (40.0-80.0) H 07/09/18 06:25 Band Neutrophils % 0 % (0-10) 07/08/18 06:05 Lymphocytes % 8.7 % (20.0-50.0) L 07/09/18 06:25 Monocytes % 6.1 % (2.0-10.0) 07/09/18 06:25 Eosinophils % 0.4 % (0.0-5.0) 07/09/18 06:25 Basophils % 0.0 % (0.0-2.0) 07/09/18 06:25 Neutrophils (Manual) 84 % (40-80) H 07/08/18 06:05 Lymphocytes 10 % (20-50) L 07/08/18 06:05 Monocytes 5 % (2-10) 07/08/18 06:05 Eosinophils 1 % (0-5) 07/08/18 06:05 Basophils 0 % (0-3) 07/08/18 06:05 Eos Smear Source URINE 07/08/18 00:00 Eos Smear Total Cells NONE SEEN (NONE SEEN) 07/08/18 00:00 Sodium 146 mEq/L (136-145) H 07/09/18 06:25 Potassium 3.7 mEq/L (3.5-5.1) 07/09/18 06:25 Chloride 116 mEq/L (98-107) H 07/09/18 06:25 Carbon Dioxide 20.9 mEq/L (21.0-31.0) L 07/09/18 06:25 Anion Gap 12.8 (7.0-16.0) 07/09/18 06:25 BUN 33 mg/dL (7-25) H 07/09/18 06:25 Creatinine 1.3 mg/dL (0.6-1.2) H 07/09/18 06:25 Est GFR ( Amer) TNP 07/09/18 06:25 Est GFR (Non-Af Amer) TNP 07/09/18 06:25 BUN/Creatinine Ratio 25.4 07/09/18 06:25 Glucose 141 mg/dL (70-105) H 07/09/18 06:25 POC Glucose 152 MG/DL (70 - 105) H 07/08/18 09:06 Uric Acid 8.2 mg/dL (2.3-6.6) H 07/08/18 06:05 Calcium 8.5 mg/dL (8.6-10.3) L 07/09/18 06:25 Phosphorus 2.8 mg/dL (2.5-5.0) 07/08/18 06:05 Magnesium 1.7 mg/dL (1.9-2.7) L 07/09/18 06:25 Total Bilirubin 0.8 mg/dL (0.3-1.0) 07/09/18 06:25 AST 11 U/L (13-39) L 07/09/18 06:25 ALT 12 U/L (7-52) 07/09/18 06:25 Alkaline Phosphatase 70 U/L (34-104) 07/09/18 06:25 Total Protein 6.2 gm/dL (6.0-8.3) 07/09/18 06:25 Albumin 3.2 gm/dL (3.7-5.3) L 07/09/18 06:25 Globulin 3.0 gm/dL 07/09/18 06:25 Albumin/Globulin Ratio 1.1 (1.0-1.8) 07/09/18 06:25 TSH 0.64 uIU/ml (0.34-5.60) 07/08/18 06:05 Urine Source CATH 07/08/18 00:00 Urine Color YELLOW 07/08/18 00:00 Urine Clarity CLOUDY (CLEAR) H 07/08/18 00:00 Urine pH 8.5 (4.6 - 8.0) 07/08/18 00:00 Ur Specific [place] <= 1.005 (1.005-1.030) 07/08/18 00:00 Urine Protein >=300 mg/dL (NEGATIVE) 07/08/18 00:00 Urine Glucose (UA) NEGATIVE mg/dL (NEGATIVE) 07/08/18 00:00 Urine Ketones NEGATIVE mg/dL (NEGATIVE) 07/08/18 00:00 Urine Blood MODERATE (NEGATIVE) H 07/08/18 00:00 Urine Nitrate NEGATIVE (NEGATIVE) 07/08/18 00:00 Urine Bilirubin NEGATIVE (NEGATIVE) 07/08/18 00:00 Urine Urobilinogen 1.0 E.U./dL (0.2 - 1.0) 07/08/18 00:00 Ur Leukocyte Esterase LARGE (NEGATIVE) H 07/08/18 00:00 Urine RBC 2-5 /hpf (0-5) 07/08/18 00:00 Urine WBC 25-50 /hpf (0-5) H 07/08/18 00:00 Ur Epithelial Cells NONE SEEN /lpf (FEW) 07/08/18 00:00 Urine Bacteria MANY /hpf (NONE SEEN) H 07/08/18 00:00 Ur Random Sodium 49 mmol/L 07/08/18 00:00 Urine Creatinine 309.0 mg/dl (28.0-217.0) H 07/08/18 00:00 Microalb/Creat Ratio 317.2 mg/g creat (0.0-30.0) H 07/08/18 00:00 - Physical Exam Vitals and I&O: Vital Signs Temp 99.2 F 07/09/18 13:00 Pulse 60 07/09/18 13:00 Resp 18 07/09/18 13:00 BP 125/70 07/09/18 13:00 Pulse Ox 96 03/28/19 12:00 Intake & Output 07/08/18 07/09/18 07/09/18 18:59 06:59 18:59 Intake Total 60 Output Total 4 Balance 56 Weight (lbs) 64.954 kg 64.954 kg Intake: Oral 60 Output: Urine 2 Stool 2 Other: # Voids 3 # Bowel Movements 2 Stool Characteristics Soft Soft Soft Liquid Liquid Brown Brown Brown Weight Source Bedscale Bedscale Active Medications: Current Medications Acetaminophen (Tylenol Children) 320 mg PO Q6H PRN PRN Reason: Pain (Mild) Stop: 09/05/18 21:24 Atorvastatin Calcium (Lipitor) 80 mg PO HS [facility]; Protocol Stop: 09/05/18 20:59 Last Admin: 07/08/18 21:21 Dose: Not Given Cholecalciferol (Vitamin D3) 2,000 iu PO DAILY [facility] Stop: 09/06/18 08:59 Last Admin: 07/09/18 09:45 Dose: 2,000 iu Citric Acid/Sodium Citrate (Bicitra) 30 ml PO DAILY [facility] Stop: 09/05/18 19:29 Last Admin: 07/09/18 09:50 Dose: 30 ml Clopidogrel Bisulfate (Plavix) 75 mg PO DAILY [facility] Stop: 09/06/18 08:59 Last Admin: 07/09/18 09:45 Dose: 75 mg Dextrose (Glutose 40%) 18.75 gm PO PRN PRN PRN Reason: Blood Glucose less than 70 Stop: 09/05/18 09:19 Ferrous Sulfate (Iron) 325 mg PO BID [facility] Stop: 09/05/18 16:59 Last Admin: 07/09/18 09:46 Dose: 325 mg Dextrose (D5w) 1,000 mls @ 75 mls/hr IV .[id number] [facility] Stop: 09/06/18 13:59 Last Admin: 07/09/18 01:46 Dose: 75 mls/hr Ceftriaxone Sodium 1 gm/ (Dextrose) 50 mls @ 100 mls/hr IV Q24H [facility] Stop: 09/06/18 14:14 Last Admin: 07/08/18 14:37 Dose: 100 mls/hr Insulin Human Lispro (Humalog) 0 unit SUBQ DAILY [facility]; Protocol Stop: 09/04/18 20:29 Last Admin: 07/09/18 09:46 Dose: Not Given Lamotrigine (Lamictal) 50 mg PO DAILY [facility]; Protocol Stop: 09/06/18 08:59 Last Admin: 07/09/18 09:45 Dose: 50 mg Lorazepam (Ativan) 0.5 mg PO Q4HR PRN; Protocol PRN Reason: Anxiety Stop: 09/05/18 09:19 Last Admin: 07/09/18 09:45 Dose: 0.5 mg Magnesium Hydroxide (Milk Of Magnesia) 30 ml PO HS PRN PRN Reason: Constipation Stop: 09/05/18 09:19 Nystatin (Nystop) 100 units TP TID [facility] Stop: 09/07/18 09:59 Pantoprazole Sodium (Protonix) 40 mg PO DAILY [facility] Stop: 09/06/18 08:59 Last Admin: 07/09/18 09:46 Dose: 40 mg Petrolatum (Zinc Oxide) 1 appl TP BID [facility] Stop: 09/05/18 16:59 Last Admin: 07/08/18 18:48 Dose: Not Given Quetiapine Fumarate (Seroquel) 25 mg PO BID [facility]; Protocol Stop: 09/05/18 16:59 Last Admin: 07/09/18 09:45 Dose: 25 mg Thiamine HCl (Vitamin B1) 100 mg PO DAILY [facility] Stop: 09/06/18 08:59 Last Admin: 07/09/18 09:45 Dose: 100 mg Vancomycin HCl (Vancomycin Oral) 250 mg PO QID [facility] Stop: 09/04/18 20:59 Last Admin: 07/09/18 09:51 Dose: 250 mg Zolpidem Tartrate (Ambien) 5 mg PO HS PRN PRN Reason: Insomnia Stop: 09/05/18 09:19 General: No acute distress HEENT: Atraumatic, Mucous membr. moist/pink Neck: Supple, +2 carotid pulse wo bruit Cardiovascular: Regular rate, Normal S1, Normal S2 Lungs: Clear to auscultation Abdomen: Bowel sounds, Soft Extremities: no Edema Neurological: Sensation intact Skin: no Rash Psych/Mental Status: Mood NL Assessment/Plan - Assessment Assessment: SHEILA on CKD T2DM DJD Psychosis Microcytic Anemia - Plan Plan: Lab - Result Diagrams 07/08/18 06:05 07/08/18 06:05 Current Medications Acetaminophen (Tylenol Children) 320 mg PO Q6H PRN PRN Reason: Pain (Mild) Stop: 09/05/18 21:24 Atorvastatin Calcium (Lipitor) 80 mg PO HS [facility]; Protocol Stop: 09/05/18 20:59 Last Admin: 07/07/18 22:24 Dose: 80 mg Cholecalciferol (Vitamin D3) 2,000 iu PO DAILY [facility] Stop: 09/06/18 08:59 Last Admin: 07/08/18 09:07 Dose: 2,000 iu Citric Acid/Sodium Citrate (Bicitra) 30 ml PO DAILY [facility] Stop: 09/05/18 19:29 Last Admin: 07/08/18 14:02 Dose: Not Given Clopidogrel Bisulfate (Plavix) 75 mg PO DAILY [facility] Stop: 09/06/18 08:59 Last Admin: 07/08/18 09:07 Dose: 75 mg Dextrose (Glutose 40%) 18.75 gm PO PRN PRN PRN Reason: Blood Glucose less than 70 Stop: 09/05/18 09:19 Ferrous Sulfate (Iron) 325 mg PO BID [facility] Stop: 09/05/18 16:59 Last Admin: 07/08/18 09:07 Dose: 325 mg Dextrose (D5w) 1,000 mls @ 75 mls/hr IV .[id number] [facility] Stop: 09/06/18 13:59 Insulin Human Lispro (Humalog) 0 unit SUBQ DAILY [facility]; Protocol Stop: 09/04/18 20:29 Last Admin: 07/08/18 09:06 Dose: Not Given Lamotrigine (Lamictal) 50 mg PO DAILY [facility]; Protocol Stop: 09/06/18 08:59 Last Admin: 07/08/18 09:07 Dose: 50 mg Lorazepam (Ativan) 0.5 mg PO Q4HR PRN; Protocol PRN Reason: Anxiety Stop: 09/05/18 09:19 Magnesium Hydroxide (Milk Of Magnesia) 30 ml PO HS PRN PRN Reason: Constipation Stop: 09/05/18 09:19 Pantoprazole Sodium (Protonix) 40 mg PO DAILY [facility] Stop: 09/06/18 08:59 Last Admin: 07/08/18 09:07 Dose: 40 mg Petrolatum (Zinc Oxide) 1 appl TP BID [facility] Stop: 09/05/18 16:59 Last Admin: 07/07/18 16:29 Dose: 1 appl Quetiapine Fumarate (Seroquel) 25 mg PO BID [facility]; Protocol Stop: 09/05/18 16:59 Last Admin: 07/08/18 09:06 Dose: 25 mg Thiamine HCl (Vitamin B1) 100 mg PO DAILY [facility] Stop: 09/06/18 08:59 Last Admin: 07/08/18 09:07 Dose: 100 mg Vancomycin HCl (Vancomycin Oral) 250 mg PO QID [facility] Stop: 09/04/18 20:59 Last Admin: 07/08/18 09:21 Dose: 250 mg Zolpidem Tartrate (Ambien) 5 mg PO HS PRN PRN Reason: Insomnia Stop: 09/05/18 09:19 Lab - Result Diagrams 07/09/18 06:25 07/09/18 06:25 Kidney fnc gradually improving w/ BUN/CR of 33/1.3 Stool for C. diff negative per nurse switch to D5W refusing lunch & meds UA suggestive of UTI, awaiting C/S start Rocephin FE Na 0.14% strong prerenal componenet WBC the same Nutritional Asmnt/Malnutr-PDOC - Dietary Evaluation Malnutrition Findings (Please click <Entered> for more info): Nutritional Asmnt/Malnutrition Start: 07/08/18 15: 04 Text: Status: Complete Freq: Protocol: Document 07/08/18 15:04 LCHENG (Rec: 07/08/18 15:39 [email or web address]) Nutritional Asmnt/Malnutrition Patient General Information Nutritional Screening High Risk Diagnosis dehydration Pertinent Medical Hx/Surgical Hx CKD, HTN, hyperlipidemia, DJD, DM, osteoporosis, a fib, distolic dysfunction Subjective Information Pt seen in bed on restrains, agitated and confused. Per nurse note, pt refused PO potassium. According to EMR, pt consumed 75% x 2 meals yesterday. Current Diet Order/ Nutrition Support pureed, nectar thick liquid Pertinent Medications lipitor, vit D3, iron, humalog , D5w, lamictal, protonix, k phos, vit B1, vancomycin Pertinent Labs 07/08 Na 150, K 3.4, Cl 116, BUN 38, Cr 1.5, Glu 150, POC 152 07/06 Na 150, Cl 118, BUN 44, Cr 1.9, Glu 142, POC 148 Nutritional Hx/Data Height 1.57 m Height (Calculated Centimeters) 157.5 Current Weight (lbs) 45.359 kg Weight (Calculated Kilograms) 45.4 Weight (Calculated Grams) 65058.2 [place] Body Weight 110 Body Mass Index (BMI) 18.3 Weight Status Underweight GI Symptoms GI Symptoms None Last BM 07/07 x 3 Difficult in: None Skin Integrity/Comment: intact. yarelis [place] Current %PO Good (75-100%) Estimated Nutritional Goals BEE in Kcals: Using Current wt Calories/Kcals/Kg 27-32 Kcals Calculated 2287-7574 Protein: Using Current wt Protein g/k Protein Calculated 50 Fluid: ml 1215-1440ml (1ml/kcal) Nutritional Problem 1. Problem Problem altered nutrition related labs Etiology electrolytes/fluid imbalance, hyperglycemia Signs/Symptoms: Na 150, K 3.4, Cl 116, BUN 38, Cr 1.5, Glu 150, POC 152 Malnutrition Alert Is there a minimum of two criteria No selected? Query Text:Check all the applicable criteria. A minimum of two criteria are recommended for diagnosis of either severe or non-severe malnutrition. Malnutrition Related to Morbid Obesity Malnutrition related to morbid obesity No Intervention/Recommendation Comments 1. Continue with pureed nectar thick diet as ordered. Recommend to add CCHO-60gm diet for optimal glycemic control. 2. Monitor PO intake, wt, labs and skin integrity 3. F/U as high risk in 2-3 days Expected Outcomes/Goals Expected Outcomes/Goals 1. PO intake to meet at least 75% of nutritional needs. 2. Wt stability, skin to remain intact, labs to approach WNL.
--- NOTE | 2018-07-09 14:48 | General Progress Note ---
Subjective - Review of Systems Subjective: sleeping, comfortable Objective - Results Result Diagrams: 07/09/18 06:25 07/09/18 06:25 Recent Labs: Laboratory Last Values WBC 15.3 Th/cmm (4.8-10.8) H 07/09/18 06:25 RBC 3.81 Mil/cmm (3.80-5.20) 07/09/18 06:25 Hgb 10.0 gm/dL (12-16) L 07/09/18 06:25 Hct 31.0 % (41.0-60) L 07/09/18 06:25 MCV 81.4 fl (81-100) 07/09/18 06:25 MCH 26.3 pg (27.0-31.0) L 07/09/18 06:25 MCHC Differential 32.3 pg (28.0-36.0) 07/09/18 06:25 RDW 23.9 % (11.5-20.0) H 07/09/18 06:25 Plt Count 286 Th/cmm (150-400) 07/09/18 06:25 MPV 9.1 fl 07/09/18 06:25 Add Manual Diff YES 07/08/18 06:05 Neutrophils % 84.8 % (40.0-80.0) H 07/09/18 06:25 Band Neutrophils % 0 % (0-10) 07/08/18 06:05 Lymphocytes % 8.7 % (20.0-50.0) L 07/09/18 06:25 Monocytes % 6.1 % (2.0-10.0) 07/09/18 06:25 Eosinophils % 0.4 % (0.0-5.0) 07/09/18 06:25 Basophils % 0.0 % (0.0-2.0) 07/09/18 06:25 Neutrophils (Manual) 84 % (40-80) H 07/08/18 06:05 Lymphocytes 10 % (20-50) L 07/08/18 06:05 Monocytes 5 % (2-10) 07/08/18 06:05 Eosinophils 1 % (0-5) 07/08/18 06:05 Basophils 0 % (0-3) 07/08/18 06:05 Eos Smear Source URINE 07/08/18 00:00 Eos Smear Total Cells NONE SEEN (NONE SEEN) 07/08/18 00:00 Sodium 146 mEq/L (136-145) H 07/09/18 06:25 Potassium 3.7 mEq/L (3.5-5.1) 07/09/18 06:25 Chloride 116 mEq/L (98-107) H 07/09/18 06:25 Carbon Dioxide 20.9 mEq/L (21.0-31.0) L 07/09/18 06:25 Anion Gap 12.8 (7.0-16.0) 07/09/18 06:25 BUN 33 mg/dL (7-25) H 07/09/18 06:25 Creatinine 1.3 mg/dL (0.6-1.2) H 07/09/18 06:25 Est GFR ( Amer) TNP 07/09/18 06:25 Est GFR (Non-Af Amer) TNP 07/09/18 06:25 BUN/Creatinine Ratio 25.4 07/09/18 06:25 Glucose 141 mg/dL (70-105) H 07/09/18 06:25 POC Glucose 152 MG/DL (70 - 105) H 07/08/18 09:06 Uric Acid 8.2 mg/dL (2.3-6.6) H 07/08/18 06:05 Calcium 8.5 mg/dL (8.6-10.3) L 07/09/18 06:25 Phosphorus 2.8 mg/dL (2.5-5.0) 07/08/18 06:05 Magnesium 1.7 mg/dL (1.9-2.7) L 07/09/18 06:25 Total Bilirubin 0.8 mg/dL (0.3-1.0) 07/09/18 06:25 AST 11 U/L (13-39) L 07/09/18 06:25 ALT 12 U/L (7-52) 07/09/18 06:25 Alkaline Phosphatase 70 U/L (34-104) 07/09/18 06:25 Total Protein 6.2 gm/dL (6.0-8.3) 07/09/18 06:25 Albumin 3.2 gm/dL (3.7-5.3) L 07/09/18 06:25 Globulin 3.0 gm/dL 07/09/18 06:25 Albumin/Globulin Ratio 1.1 (1.0-1.8) 07/09/18 06:25 TSH 0.64 uIU/ml (0.34-5.60) 07/08/18 06:05 Urine Source CATH 07/08/18 00:00 Urine Color YELLOW 07/08/18 00:00 Urine Clarity CLOUDY (CLEAR) H 07/08/18 00:00 Urine pH 8.5 (4.6 - 8.0) 07/08/18 00:00 Ur Specific [place] <= 1.005 (1.005-1.030) 07/08/18 00:00 Urine Protein >=300 mg/dL (NEGATIVE) 07/08/18 00:00 Urine Glucose (UA) NEGATIVE mg/dL (NEGATIVE) 07/08/18 00:00 Urine Ketones NEGATIVE mg/dL (NEGATIVE) 07/08/18 00:00 Urine Blood MODERATE (NEGATIVE) H 07/08/18 00:00 Urine Nitrate NEGATIVE (NEGATIVE) 07/08/18 00:00 Urine Bilirubin NEGATIVE (NEGATIVE) 07/08/18 00:00 Urine Urobilinogen 1.0 E.U./dL (0.2 - 1.0) 07/08/18 00:00 Ur Leukocyte Esterase LARGE (NEGATIVE) H 07/08/18 00:00 Urine RBC 2-5 /hpf (0-5) 07/08/18 00:00 Urine WBC 25-50 /hpf (0-5) H 07/08/18 00:00 Ur Epithelial Cells NONE SEEN /lpf (FEW) 07/08/18 00:00 Urine Bacteria MANY /hpf (NONE SEEN) H 07/08/18 00:00 Ur Random Sodium 49 mmol/L 07/08/18 00:00 Urine Creatinine 309.0 mg/dl (28.0-217.0) H 07/08/18 00:00 Microalb/Creat Ratio 317.2 mg/g creat (0.0-30.0) H 07/08/18 00:00 - Physical Exam Vitals and I&O: Vital Signs Temp 99.2 F 07/09/18 13:00 Pulse 60 07/09/18 13:00 Resp 18 07/09/18 13:00 BP 125/70 07/09/18 13:00 Pulse Ox 96 07/09/18 12:00 Intake & Output 07/08/18 07/09/18 07/09/18 18:59 06:59 18:59 Intake Total 60 Output Total 4 Balance 56 Weight (lbs) 64.954 kg 64.954 kg Intake: Oral 60 Output: Urine 2 Stool 2 Other: # Voids 3 # Bowel Movements 2 Stool Characteristics Soft Soft Soft Liquid Liquid Brown Brown Brown Weight Source Bedscale Bedscale Active Medications: Current Medications Acetaminophen (Tylenol Children) 320 mg PO Q6H PRN PRN Reason: Pain (Mild) Stop: 09/05/18 21:24 Atorvastatin Calcium (Lipitor) 80 mg PO HS [facility]; Protocol Stop: 09/05/18 20:59 Last Admin: 07/08/18 21:21 Dose: Not Given Cholecalciferol (Vitamin D3) 2,000 iu PO DAILY [facility] Stop: 09/06/18 08:59 Last Admin: 07/09/18 09:45 Dose: 2,000 iu Citric Acid/Sodium Citrate (Bicitra) 30 ml PO DAILY [facility] Stop: 09/05/18 19:29 Last Admin: 07/09/18 09:50 Dose: 30 ml Clopidogrel Bisulfate (Plavix) 75 mg PO DAILY [facility] Stop: 09/06/18 08:59 Last Admin: 07/09/18 09:45 Dose: 75 mg Dextrose (Glutose 40%) 18.75 gm PO PRN PRN PRN Reason: Blood Glucose less than 70 Stop: 09/05/18 09:19 Ferrous Sulfate (Iron) 325 mg PO BID [facility] Stop: 09/05/18 16:59 Last Admin: 07/09/18 09:46 Dose: 325 mg Dextrose (D5w) 1,000 mls @ 75 mls/hr IV .[id number] [facility] Stop: 09/06/18 13:59 Last Admin: 07/09/18 01:46 Dose: 75 mls/hr Ceftriaxone Sodium 1 gm/ (Dextrose) 50 mls @ 100 mls/hr IV Q24H [facility] Stop: 09/06/18 14:14 Last Admin: 07/08/18 14:37 Dose: 100 mls/hr Insulin Human Lispro (Humalog) 0 unit SUBQ DAILY [facility]; Protocol Stop: 09/04/18 20:29 Last Admin: 07/09/18 09:46 Dose: Not Given Lamotrigine (Lamictal) 50 mg PO DAILY [facility]; Protocol Stop: 09/06/18 08:59 Last Admin: 07/09/18 09:45 Dose: 50 mg Lorazepam (Ativan) 0.5 mg PO Q4HR PRN; Protocol PRN Reason: Anxiety Stop: 09/05/18 09:19 Last Admin: 07/09/18 09:45 Dose: 0.5 mg Magnesium Hydroxide (Milk Of Magnesia) 30 ml PO HS PRN PRN Reason: Constipation Stop: 09/05/18 09:19 Nystatin (Nystop) 100 units TP TID [facility] Stop: 09/07/18 09:59 Pantoprazole Sodium (Protonix) 40 mg PO DAILY [facility] Stop: 09/06/18 08:59 Last Admin: 07/09/18 09:46 Dose: 40 mg Petrolatum (Zinc Oxide) 1 appl TP BID [facility] Stop: 09/05/18 16:59 Last Admin: 07/08/18 18:48 Dose: Not Given Quetiapine Fumarate (Seroquel) 25 mg PO BID [facility]; Protocol Stop: 09/05/18 16:59 Last Admin: 07/09/18 09:45 Dose: 25 mg Thiamine HCl (Vitamin B1) 100 mg PO DAILY [facility] Stop: 09/06/18 08:59 Last Admin: 07/09/18 09:45 Dose: 100 mg Vancomycin HCl (Vancomycin Oral) 250 mg PO QID [facility] Stop: 09/04/18 20:59 Last Admin: 07/09/18 09:51 Dose: 250 mg Zolpidem Tartrate (Ambien) 5 mg PO HS PRN PRN Reason: Insomnia Stop: 09/05/18 09:19 General: No acute distress HEENT: Atraumatic, Mucous membr. moist/pink Neck: Supple, +2 carotid pulse wo bruit Cardiovascular: Regular rate, Normal S1, Normal S2 Lungs: Clear to auscultation Abdomen: Bowel sounds, Soft Extremities: no Edema Neurological: Sensation intact Skin: no Rash Psych/Mental Status: Mood NL Assessment/Plan - Assessment Assessment: SHEILA on CKD T2DM DJD Psychosis Microcytic Anemia - Plan Plan: Lab - Result Diagrams 07/08/18 06:05 07/08/18 06:05 Current Medications Acetaminophen (Tylenol Children) 320 mg PO Q6H PRN PRN Reason: Pain (Mild) Stop: 09/05/18 21:24 Atorvastatin Calcium (Lipitor) 80 mg PO HS [facility]; Protocol Stop: 09/05/18 20:59 Last Admin: 07/07/18 22:24 Dose: 80 mg Cholecalciferol (Vitamin D3) 2,000 iu PO DAILY [facility] Stop: 09/06/18 08:59 Last Admin: 07/08/18 09:07 Dose: 2,000 iu Citric Acid/Sodium Citrate (Bicitra) 30 ml PO DAILY [facility] Stop: 09/05/18 19:29 Last Admin: 07/08/18 14:02 Dose: Not Given Clopidogrel Bisulfate (Plavix) 75 mg PO DAILY [facility] Stop: 09/06/18 08:59 Last Admin: 07/08/18 09:07 Dose: 75 mg Dextrose (Glutose 40%) 18.75 gm PO PRN PRN PRN Reason: Blood Glucose less than 70 Stop: 09/05/18 09:19 Ferrous Sulfate (Iron) 325 mg PO BID [facility] Stop: 09/05/18 16:59 Last Admin: 07/08/18 09:07 Dose: 325 mg Dextrose (D5w) 1,000 mls @ 75 mls/hr IV .[id number] [facility] Stop: 09/06/18 13:59 Insulin Human Lispro (Humalog) 0 unit SUBQ DAILY [facility]; Protocol Stop: 09/04/18 20:29 Last Admin: 07/08/18 09:06 Dose: Not Given Lamotrigine (Lamictal) 50 mg PO DAILY [facility]; Protocol Stop: 09/06/18 08:59 Last Admin: 07/08/18 09:07 Dose: 50 mg Lorazepam (Ativan) 0.5 mg PO Q4HR PRN; Protocol PRN Reason: Anxiety Stop: 09/05/18 09:19 Magnesium Hydroxide (Milk Of Magnesia) 30 ml PO HS PRN PRN Reason: Constipation Stop: 09/05/18 09:19 Pantoprazole Sodium (Protonix) 40 mg PO DAILY [facility] Stop: 09/06/18 08:59 Last Admin: 07/08/18 09:07 Dose: 40 mg Petrolatum (Zinc Oxide) 1 appl TP BID [facility] Stop: 09/05/18 16:59 Last Admin: 07/07/18 16:29 Dose: 1 appl Quetiapine Fumarate (Seroquel) 25 mg PO BID [facility]; Protocol Stop: 09/05/18 16:59 Last Admin: 07/08/18 09:06 Dose: 25 mg Thiamine HCl (Vitamin B1) 100 mg PO DAILY [facility] Stop: 09/06/18 08:59 Last Admin: 07/08/18 09:07 Dose: 100 mg Vancomycin HCl (Vancomycin Oral) 250 mg PO QID [facility] Stop: 09/04/18 20:59 Last Admin: 07/08/18 09:21 Dose: 250 mg Zolpidem Tartrate (Ambien) 5 mg PO HS PRN PRN Reason: Insomnia Stop: 09/05/18 09:19 Lab - Result Diagrams 07/09/18 06:25 07/09/18 06:25 Kidney fnc gradually improving w/ BUN/CR of 33/1.3 Stool for C. diff negative per nurse switch to D5W refusing lunch & meds UA suggestive of UTI, awaiting C/S start Rocephin FE Na 0.14% strong prerenal componenet WBC the same Nutritional Asmnt/Malnutr-PDOC - Dietary Evaluation Malnutrition Findings (Please click <Entered> for more info): Nutritional Asmnt/Malnutrition Start: 07/08/18 15: 04 Text: Status: Complete Freq: Protocol: Document 07/08/18 15:04 LCHENG (Rec: 07/08/18 15:39 LCHENG [email or web address]) Nutritional Asmnt/Malnutrition Patient General Information Nutritional Screening High Risk Diagnosis dehydration Pertinent Medical Hx/Surgical Hx CKD, HTN, hyperlipidemia, DJD, DM, osteoporosis, a fib, distolic dysfunction Subjective Information Pt seen in bed on restrains, agitated and confused. Per nurse note, pt refused PO potassium. According to EMR, pt consumed 75% x 2 meals yesterday. Current Diet Order/ Nutrition Support pureed, nectar thick liquid Pertinent Medications lipitor, vit D3, iron, humalog , D5w, lamictal, protonix, k phos, vit B1, vancomycin Pertinent Labs 07/08 Na 150, K 3.4, Cl 116, BUN 38, Cr 1.5, Glu 150, POC 152 07/06 Na 150, Cl 118, BUN 44, Cr 1.9, Glu 142, POC 148 Nutritional Hx/Data Height 1.57 m Height (Calculated Centimeters) 157.5 Current Weight (lbs) 45.359 kg Weight (Calculated Kilograms) 45.4 Weight (Calculated Grams) 90330.2 [place] Body Weight 110 Body Mass Index (BMI) 18.3 Weight Status Underweight GI Symptoms GI Symptoms None Last BM 07/07 x 3 Difficult in: None Skin Integrity/Comment: intact. yarelis [place] Current %PO Good (75-100%) Estimated Nutritional Goals BEE in Kcals: Using Current wt Calories/Kcals/Kg 27-32 Kcals Calculated 8465-1486 Protein: Using Current wt Protein g/k Protein Calculated 50 Fluid: ml 1215-1440ml (1ml/kcal) Nutritional Problem 1. Problem Problem altered nutrition related labs Etiology electrolytes/fluid imbalance, hyperglycemia Signs/Symptoms: Na 150, K 3.4, Cl 116, BUN 38, Cr 1.5, Glu 150, POC 152 Malnutrition Alert Is there a minimum of two criteria No selected? Query Text:Check all the applicable criteria. A minimum of two criteria are recommended for diagnosis of either severe or non-severe malnutrition. Malnutrition Related to Morbid Obesity Malnutrition related to morbid obesity No Intervention/Recommendation Comments 1. Continue with pureed nectar thick diet as ordered. Recommend to add CCHO-60gm diet for optimal glycemic control. 2. Monitor PO intake, wt, labs and skin integrity 3. F/U as high risk in 2-3 days Expected Outcomes/Goals Expected Outcomes/Goals 1. PO intake to meet at least 75% of nutritional needs. 2. Wt stability, skin to remain intact, labs to approach WNL.
[2018-07-10] MEDS: Pantoprazole 40 mg/Packet PO SCH (08:10)
[2018-07-10] MEDS: Ferrous Sulfate 325 MG TAB PO SCH ×2 (08:10→16:54)
[2018-07-10] MEDS: Dextrose 5% 1,000 ML IV SCH (08:15)
[2018-07-10] MEDS: NYSTATIN 100000 UNITS/GM POWD TP SCH ×2 (08:25→14:11)
[2018-07-10] MEDS: Vancomycin HCL 250 mg /10mL UDC PO SCH ×4 (08:25→16:54)
[2018-07-10] MEDS: INSULIN LISPRO 100 UNIT/ML VIAL SUBQ SCH (08:25)
[2018-07-10] MEDS: Zinc Oxide Ointment 60 gm TP SCH ×2 (08:26→16:54)
--- NOTE | 2018-07-10 09:00 | Internal Medicine Prog Note ---
Internal Medicine Subjective - Subjective Service Date: 07/10/18 Patient seen and examined:: with staff, chart reviewed Patient is:: awake, verbal, in bed, agitated Patient Complaints of:: other (unable to understand.) Per staff patient has:: poor oral intake, other (still has dirrhea.) Internal Medicine Objective - Results Result Diagrams: 07/09/18 06:25 07/09/18 06:25 Recent Labs: Laboratory Last Values WBC 15.3 Th/cmm (4.8-10.8) H 07/09/18 06:25 RBC 3.81 Mil/cmm (3.80-5.20) 07/09/18 06:25 Hgb 10.0 gm/dL (12-16) L 07/09/18 06:25 Hct 31.0 % (41.0-60) L 07/09/18 06:25 MCV 81.4 fl (81-100) 07/09/18 06:25 MCH 26.3 pg (27.0-31.0) L 07/09/18 06:25 MCHC Differential 32.3 pg (28.0-36.0) 07/09/18 06:25 RDW 23.9 % (11.5-20.0) H 07/09/18 06:25 Plt Count 286 Th/cmm (150-400) 07/09/18 06:25 MPV 9.1 fl 07/09/18 06:25 Add Manual Diff YES 07/08/18 06:05 Neutrophils % 84.8 % (40.0-80.0) H 07/09/18 06:25 Band Neutrophils % 0 % (0-10) 07/08/18 06:05 Lymphocytes % 8.7 % (20.0-50.0) L 07/09/18 06:25 Monocytes % 6.1 % (2.0-10.0) 07/09/18 06:25 Eosinophils % 0.4 % (0.0-5.0) 07/09/18 06:25 Basophils % 0.0 % (0.0-2.0) 07/09/18 06:25 Neutrophils (Manual) 84 % (40-80) H 07/08/18 06:05 Lymphocytes 10 % (20-50) L 07/08/18 06:05 Monocytes 5 % (2-10) 07/08/18 06:05 Eosinophils 1 % (0-5) 07/08/18 06:05 Basophils 0 % (0-3) 07/08/18 06:05 Eos Smear Source URINE 07/08/18 00:00 Eos Smear Total Cells NONE SEEN (NONE SEEN) 07/08/18 00:00 Sodium 146 mEq/L (136-145) H 07/09/18 06:25 Potassium 3.7 mEq/L (3.5-5.1) 07/09/18 06:25 Chloride 116 mEq/L (98-107) H 07/09/18 06:25 Carbon Dioxide 20.9 mEq/L (21.0-31.0) L 07/09/18 06:25 Anion Gap 12.8 (7.0-16.0) 07/09/18 06:25 BUN 33 mg/dL (7-25) H 07/09/18 06:25 Creatinine 1.3 mg/dL (0.6-1.2) H 07/09/18 06:25 Est GFR ( Amer) TNP 07/09/18 06:25 Est GFR (Non-Af Amer) TNP 07/09/18 06:25 BUN/Creatinine Ratio 25.4 07/09/18 06:25 Glucose 141 mg/dL (70-105) H 07/09/18 06:25 POC Glucose 152 MG/DL (70 - 105) H 07/08/18 09:06 Uric Acid 8.2 mg/dL (2.3-6.6) H 07/08/18 06:05 Calcium 8.5 mg/dL (8.6-10.3) L 07/09/18 06:25 Phosphorus 2.8 mg/dL (2.5-5.0) 07/08/18 06:05 Magnesium 1.7 mg/dL (1.9-2.7) L 07/09/18 06:25 Total Bilirubin 0.8 mg/dL (0.3-1.0) 07/09/18 06:25 AST 11 U/L (13-39) L 07/09/18 06:25 ALT 12 U/L (7-52) 07/09/18 06:25 Alkaline Phosphatase 70 U/L (34-104) 07/09/18 06:25 Total Protein 6.2 gm/dL (6.0-8.3) 07/09/18 06:25 Albumin 3.2 gm/dL (3.7-5.3) L 07/09/18 06:25 Globulin 3.0 gm/dL 07/09/18 06:25 Albumin/Globulin Ratio 1.1 (1.0-1.8) 07/09/18 06:25 TSH 0.64 uIU/ml (0.34-5.60) 07/08/18 06:05 Urine Source CATH 07/08/18 00:00 Urine Color YELLOW 07/08/18 00:00 Urine Clarity CLOUDY (CLEAR) H 07/08/18 00:00 Urine pH 8.5 (4.6 - 8.0) 07/08/18 00:00 Ur Specific [place] <= 1.005 (1.005-1.030) 07/08/18 00:00 Urine Protein >=300 mg/dL (NEGATIVE) 07/08/18 00:00 Urine Glucose (UA) NEGATIVE mg/dL (NEGATIVE) 07/08/18 00:00 Urine Ketones NEGATIVE mg/dL (NEGATIVE) 07/08/18 00:00 Urine Blood MODERATE (NEGATIVE) H 07/08/18 00:00 Urine Nitrate NEGATIVE (NEGATIVE) 07/08/18 00:00 Urine Bilirubin NEGATIVE (NEGATIVE) 07/08/18 00:00 Urine Urobilinogen 1.0 E.U./dL (0.2 - 1.0) 07/08/18 00:00 Ur Leukocyte Esterase LARGE (NEGATIVE) H 07/08/18 00:00 Urine RBC 2-5 /hpf (0-5) 07/08/18 00:00 Urine WBC 25-50 /hpf (0-5) H 07/08/18 00:00 Ur Epithelial Cells NONE SEEN /lpf (FEW) 07/08/18 00:00 Urine Bacteria MANY /hpf (NONE SEEN) H 07/08/18 00:00 Ur Random Sodium 49 mmol/L 07/08/18 00:00 Urine Creatinine 309.0 mg/dl (28.0-217.0) H 07/08/18 00:00 Microalb/Creat Ratio 317.2 mg/g creat (0.0-30.0) H 07/08/18 00:00 - Physical Exam Vitals and I&O: Vital Signs Temp 97.1 F 07/10/18 08:11 Pulse 116 07/10/18 08:11 Resp 20 07/10/18 08:11 BP 104/77 07/10/18 08:11 Pulse Ox 98 07/10/18 08:11 Intake & Output 07/09/18 07/10/18 07/10/18 18:59 06:59 18:59 Intake Total 1000 1100 Balance 1000 1100 Weight (lbs) 64.954 kg Intake: Intake, IV Amount 1000 1000 Dextrose 5% 1,000 ml @ 75 1000 1000 mls/hr IV .[id number] [facility] Rx#:[id number] Oral 100 Other: # Voids 2 # Bowel Movements 2 Stool Characteristics Soft Soft Brown Brown Weight Source Bedscale Active Medications: Current Medications Acetaminophen (Tylenol Children) 320 mg PO Q6H PRN PRN Reason: Pain (Mild) Stop: 09/05/18 21:24 Atorvastatin Calcium (Lipitor) 80 mg PO HS [facility]; Protocol Stop: 09/05/18 20:59 Last Admin: 07/09/18 20:55 Dose: 80 mg Cholecalciferol (Vitamin D3) 2,000 iu PO DAILY [facility] Stop: 09/06/18 08:59 Last Admin: 07/10/18 08:10 Dose: 2,000 iu Citric Acid/Sodium Citrate (Bicitra) 30 ml PO DAILY [facility] Stop: 09/05/18 19:29 Last Admin: 07/10/18 08:10 Dose: 30 ml Clopidogrel Bisulfate (Plavix) 75 mg PO DAILY [facility] Stop: 09/06/18 08:59 Last Admin: 07/10/18 08:10 Dose: 75 mg Dextrose (Glutose 40%) 18.75 gm PO PRN PRN PRN Reason: Blood Glucose less than 70 Stop: 09/05/18 09:19 Ferrous Sulfate (Iron) 325 mg PO BID [facility] Stop: 09/05/18 16:59 Last Admin: 07/10/18 08:10 Dose: 325 mg Dextrose (D5w) 1,000 mls @ 75 mls/hr IV .[id number] [facility] Stop: 09/06/18 13:59 Last Admin: 07/10/18 08:15 Dose: 75 mls/hr Ceftriaxone Sodium 1 gm/ (Dextrose) 50 mls @ 100 mls/hr IV Q24H [facility] Stop: 09/06/18 14:14 Last Admin: 07/09/18 14:53 Dose: 100 mls/hr Insulin Human Lispro (Humalog) 0 unit SUBQ DAILY [facility]; Protocol Stop: 09/04/18 20:29 Last Admin: 07/10/18 08:25 Dose: Not Given Lamotrigine (Lamictal) 50 mg PO DAILY [facility]; Protocol Stop: 09/06/18 08:59 Last Admin: 07/10/18 08:11 Dose: 50 mg Lorazepam (Ativan) 0.5 mg PO Q4HR PRN; Protocol PRN Reason: Anxiety Stop: 09/05/18 09:19 Last Admin: 07/09/18 09:45 Dose: 0.5 mg Magnesium Hydroxide (Milk Of Magnesia) 30 ml PO HS PRN PRN Reason: Constipation Stop: 09/05/18 09:19 Nystatin (Nystop) 100 units TP TID [facility] Stop: 09/07/18 09:59 Last Admin: 07/10/18 08:25 Dose: Not Given Pantoprazole Sodium (Protonix) 40 mg PO DAILY [facility] Stop: 09/06/18 08:59 Last Admin: 07/10/18 08:10 Dose: 40 mg Petrolatum (Zinc Oxide) 1 appl TP BID [facility] Stop: 09/05/18 16:59 Last Admin: 07/10/18 08:26 Dose: Not Given Quetiapine Fumarate (Seroquel) 25 mg PO BID [facility]; Protocol Stop: 09/05/18 16:59 Last Admin: 07/10/18 08:10 Dose: 25 mg Thiamine HCl (Vitamin B1) 100 mg PO DAILY [facility] Stop: 09/06/18 08:59 Last Admin: 07/10/18 08:10 Dose: 100 mg Vancomycin HCl (Vancomycin Oral) 250 mg PO QID [facility] Stop: 09/04/18 20:59 Last Admin: 07/10/18 08:25 Dose: 250 mg Zolpidem Tartrate (Ambien) 5 mg PO HS PRN PRN Reason: Insomnia Stop: 09/05/18 09:19 Last Admin: 07/09/18 20:55 Dose: 5 mg General: alert, thin HEENT: NC/AT, PERRLA, EOMI, poor dentition Neck: Supple, No JVD, No thyromegaly Lungs: CTAB Cardiovascular: Normal S1, Normal S2 Abdomen: soft, positive bowel sound Extremities: clear, pedal pulses Neurological: alert Internal Medicine Assmt/Plan - Assessment Assessment: Hypernatremia on IVF. Acute kidney injury improving. Diarrhea r/o c diff. Psych disorder. Diabetes. Hypertension. Chronic A Fib. Dermatitis. Alzheimer's Dementia. S/P drug overdose. DJD Debility. Fall risk. - Plan Plan: IVF. Psych follow up. Renal follow up. Follow lab. General nursing care. Diabetes management. Chronic disease management. Symptoms control. Medication management. PT and OT. Dysphagia diet. Repeat stool for c diff. PO vancomycin. Locally Nystain ointment. Continue current care. Discussed with staff. Nutritional Asmnt/Malnutr-PDOC - Dietary Evaluation Malnutrition Findings (Please click <Entered> for more info): Nutritional Asmnt/Malnutrition Start: 07/08/18 15: 04 Text: Status: Complete Freq: Protocol: Document 07/08/18 15:04 LCDAGMARG (Rec: 07/08/18 15:39 [email or web address]) Nutritional Asmnt/Malnutrition Patient General Information Nutritional Screening High Risk Diagnosis dehydration Pertinent Medical Hx/Surgical Hx CKD, HTN, hyperlipidemia, DJD, DM, osteoporosis, a fib, distolic dysfunction Subjective Information Pt seen in bed on restrains, agitated and confused. Per nurse note, pt refused PO potassium. According to EMR, pt consumed 75% x 2 meals yesterday. Current Diet Order/ Nutrition Support pureed, nectar thick liquid Pertinent Medications lipitor, vit D3, iron, humalog , D5w, lamictal, protonix, k phos, vit B1, vancomycin Pertinent Labs 07/08 Na 150, K 3.4, Cl 116, BUN 38, Cr 1.5, Glu 150, POC 152 07/06 Na 150, Cl 118, BUN 44, Cr 1.9, Glu 142, POC 148 Nutritional Hx/Data Height 1.57 m Height (Calculated Centimeters) 157.5 Current Weight (lbs) 45.359 kg Weight (Calculated Kilograms) 45.4 Weight (Calculated Grams) 81494.2 [place] Body Weight 110 Body Mass Index (BMI) 18.3 Weight Status Underweight GI Symptoms GI Symptoms None Last BM 07/07 x 3 Difficult in: None Skin Integrity/Comment: intact. yarelis 14 Current %PO Good (75-100%) Estimated Nutritional Goals BEE in Kcals: Using Current wt Calories/Kcals/Kg 27-32 Kcals Calculated 2148-0626 Protein: Using Current wt Protein g/k Protein Calculated 50 Fluid: ml 1215-1440ml (1ml/kcal) Nutritional Problem 1. Problem Problem altered nutrition related labs Etiology electrolytes/fluid imbalance, hyperglycemia Signs/Symptoms: Na 150, K 3.4, Cl 116, BUN 38, Cr 1.5, Glu 150, POC 152 Malnutrition Alert Is there a minimum of two criteria No selected? Query Text:Check all the applicable criteria. A minimum of two criteria are recommended for diagnosis of either severe or non-severe malnutrition. Malnutrition Related to Morbid Obesity Malnutrition related to morbid obesity No Intervention/Recommendation Comments 1. Continue with pureed nectar thick diet as ordered. Recommend to add CCHO-60gm diet for optimal glycemic control. 2. Monitor PO intake, wt, labs and skin integrity 3. F/U as high risk in 2-3 days Expected Outcomes/Goals Expected Outcomes/Goals 1. PO intake to meet at least 75% of nutritional needs. 2. Wt stability, skin to remain intact, labs to approach WNL.
[2018-07-10 11:14] LABS: % BASOPHILS 0.2 % (0.0-2.0); % EOSINOPHILS 0.9 % (0.0-5.0); % LYMPHOCYTES 7.8 % (20.0-50.0); % NEUTROPHILS 86.1 % (40.0-80.0); EOSINOPHILE ABSOLUTE 0.1 Th/cmm (0.1-0.4); HEMOGLOBIN 10.1 gm/dL (12-16); MEAN CELL VOLUME 81.2 fl (81-100); MEAN CORPUSCULAR HEMOGLOBIN 26.4 pg (27.0-31.0); MEAN CORPUSCULAR HGB CONC 32.5 pg (28.0-36.0); MEAN PLATELET VOLUME 8.9 fl; MONOCYTE ABSOLUTE 0.6 Th/cmm (0.3-1.0); NEUTROPHILE ABSOLUTE 10.9 Th/cmm (1.8-8.0); PLATELET COUNT 313 Th/cmm (150-400); RED BLOOD COUNT 3.82 Mil/cmm (3.80-5.20); RED CELL DISTRIBUTION WIDTH 23.1 % (11.5-20.0); WHITE BLOOD COUNT 12.6 Th/cmm (4.8-10.8)
[2018-07-10 11:52] LABS: ALBUMIN 2.9 gm/dL (3.7-5.3); ALKALINE PHOSPHATASE 73 U/L (34-104); ANION GAP 16.2 (7.0-16.0); BILIRUBIN,TOTAL 0.8 mg/dL (0.3-1.0); BUN - UREA NITROGEN 27 mg/dL (7-25); CALCIUM SERUM 8.5 mg/dL (8.6-10.3); CARBON DIOXIDE 18.6 mEq/L (21.0-31.0); CHLORIDE 109 mEq/L (98-107); CREATININE - SERUM 1.2 mg/dL (0.6-1.2); GLUCOSE 122 mg/dL (70-105); POTASSIUM SERUM 3.8 mEq/L (3.5-5.1); SGOT 12 U/L (13-39); SGPT/ALT 12 U/L (7-52); SODIUM SERUM 140 mEq/L (136-145); TOTAL PROTEIN,SERUM 5.9 gm/dL (6.0-8.3)
[2018-07-10 13:12] LABS: BAND NEUTROPHILE 0 % (0-10); BASOPHIL 0 % (0-3); EOSINOPHIL 2 % (0-5); LYMPHOCYTE 7 % (20-50); MONOCYTE 4 % (2-10); NEUTROPHILS 87 % (40-80)
--- NOTE | 2018-07-10 14:40 | General Progress Note ---
Subjective - Review of Systems Service Date: 07/10/18 Subjective: periods of agitation, comfortable Objective - Results Result Diagrams: 07/10/18 05:00 07/10/18 10:51 Recent Labs: Laboratory Last Values WBC 12.6 Th/cmm (4.8-10.8) H 07/10/18 05:00 RBC 3.82 Mil/cmm (3.80-5.20) 07/10/18 05:00 Hgb 10.1 gm/dL (12-16) L 07/10/18 05:00 Hct 31.0 % (41.0-60) L 07/10/18 05:00 MCV 81.2 fl (81-100) 07/10/18 05:00 MCH 26.4 pg (27.0-31.0) L 07/10/18 05:00 MCHC Differential 32.5 pg (28.0-36.0) 07/10/18 05:00 RDW 23.1 % (11.5-20.0) H 07/10/18 05:00 Plt Count 313 Th/cmm (150-400) 07/10/18 05:00 MPV 8.9 fl 07/10/18 05:00 Add Manual Diff YES 07/08/18 06:05 Neutrophils % 86.1 % (40.0-80.0) H 07/10/18 05:00 Band Neutrophils % 0 % (0-10) 07/10/18 05:00 Lymphocytes % 7.8 % (20.0-50.0) L 07/10/18 05:00 Monocytes % 5.0 % (2.0-10.0) 07/10/18 05:00 Eosinophils % 0.9 % (0.0-5.0) 07/10/18 05:00 Basophils % 0.2 % (0.0-2.0) 07/10/18 05:00 Neutrophils (Manual) 87 % (40-80) H 07/10/18 05:00 Lymphocytes 7 % (20-50) L 07/10/18 05:00 Monocytes 4 % (2-10) 07/10/18 05:00 Eosinophils 2 % (0-5) 07/10/18 05:00 Basophils 0 % (0-3) 07/10/18 05:00 Eos Smear Source URINE 07/08/18 00:00 Eos Smear Total Cells NONE SEEN (NONE SEEN) 07/08/18 00:00 Sodium 140 mEq/L (136-145) 07/10/18 10:51 Potassium 3.8 mEq/L (3.5-5.1) 07/10/18 10:51 Chloride 109 mEq/L (98-107) H 07/10/18 10:51 Carbon Dioxide 18.6 mEq/L (21.0-31.0) L 07/10/18 10:51 Anion Gap 16.2 (7.0-16.0) H 07/10/18 10:51 BUN 27 mg/dL (7-25) H 07/10/18 10:51 Creatinine 1.2 mg/dL (0.6-1.2) 07/10/18 10:51 Est GFR ( Amer) TNP 07/10/18 10:51 Est GFR (Non-Af Amer) TNP 07/10/18 10:51 BUN/Creatinine Ratio 22.5 07/10/18 10:51 Glucose 122 mg/dL (70-105) H 07/10/18 10:51 POC Glucose 152 MG/DL (70 - 105) H 07/08/18 09:06 Uric Acid 8.2 mg/dL (2.3-6.6) H 07/08/18 06:05 Calcium 8.5 mg/dL (8.6-10.3) L 07/10/18 10:51 Phosphorus 2.8 mg/dL (2.5-5.0) 07/08/18 06:05 Magnesium 1.7 mg/dL (1.9-2.7) L 07/09/18 06:25 Total Bilirubin 0.8 mg/dL (0.3-1.0) 07/10/18 10:51 AST 12 U/L (13-39) L 07/10/18 10:51 ALT 12 U/L (7-52) 07/10/18 10:51 Alkaline Phosphatase 73 U/L (34-104) 07/10/18 10:51 Total Protein 5.9 gm/dL (6.0-8.3) L 07/10/18 10:51 Albumin 2.9 gm/dL (3.7-5.3) L 07/10/18 10:51 Globulin 3.0 gm/dL 07/10/18 10:51 Albumin/Globulin Ratio 1.0 (1.0-1.8) 07/10/18 10:51 TSH 0.64 uIU/ml (0.34-5.60) 07/08/18 06:05 Urine Source CATH 07/08/18 00:00 Urine Color YELLOW 07/08/18 00:00 Urine Clarity CLOUDY (CLEAR) H 07/08/18 00:00 Urine pH 8.5 (4.6 - 8.0) 07/08/18 00:00 Ur Specific [place] <= 1.005 (1.005-1.030) 07/08/18 00:00 Urine Protein >=300 mg/dL (NEGATIVE) 07/08/18 00:00 Urine Glucose (UA) NEGATIVE mg/dL (NEGATIVE) 07/08/18 00:00 Urine Ketones NEGATIVE mg/dL (NEGATIVE) 07/08/18 00:00 Urine Blood MODERATE (NEGATIVE) H 07/08/18 00:00 Urine Nitrate NEGATIVE (NEGATIVE) 07/08/18 00:00 Urine Bilirubin NEGATIVE (NEGATIVE) 07/08/18 00:00 Urine Urobilinogen 1.0 E.U./dL (0.2 - 1.0) 07/08/18 00:00 Ur Leukocyte Esterase LARGE (NEGATIVE) H 07/08/18 00:00 Urine RBC 2-5 /hpf (0-5) 07/08/18 00:00 Urine WBC 25-50 /hpf (0-5) H 07/08/18 00:00 Ur Epithelial Cells NONE SEEN /lpf (FEW) 07/08/18 00:00 Urine Bacteria MANY /hpf (NONE SEEN) H 07/08/18 00:00 Ur Random Sodium 49 mmol/L 07/08/18 00:00 Urine Creatinine 309.0 mg/dl (28.0-217.0) H 07/08/18 00:00 Microalb/Creat Ratio 317.2 mg/g creat (0.0-30.0) H 07/08/18 00:00 - Physical Exam Vitals and I&O: Vital Signs Temp 97.4 F 07/10/18 12:11 Pulse 110 07/10/18 12:11 Resp 19 07/10/18 12:11 BP 117/81 07/10/18 12:11 Pulse Ox 98 07/10/18 12:11 Intake & Output 07/09/18 07/10/18 07/10/18 18:59 06:59 18:59 Intake Total 1050 1100 Balance 1050 1100 Weight (lbs) 64.954 kg Intake: Intake, IV Amount 1050 1000 Dextrose 5% 1,000 ml @ 75 1000 1000 mls/hr IV .[id number] [facility] Rx#:[id number] cefTRIAXone 1 gm In 50 Dextrose 5% 50 ml @ 100 mls/hr IV Q24H [facility] Rx#: [id number] Oral 100 Other: # Voids 2 # Bowel Movements 2 Stool Characteristics Soft Soft Soft Brown Brown Liquid Brown Green Weight Source Bedscale Active Medications: Current Medications Acetaminophen (Tylenol Children) 320 mg PO Q6H PRN PRN Reason: Pain (Mild) Stop: 09/05/18 21:24 Atorvastatin Calcium (Lipitor) 80 mg PO HS [facility]; Protocol Stop: 09/05/18 20:59 Last Admin: 07/09/18 20:55 Dose: 80 mg Cholecalciferol (Vitamin D3) 2,000 iu PO DAILY [facility] Stop: 09/06/18 08:59 Last Admin: 07/10/18 08:10 Dose: 2,000 iu Citric Acid/Sodium Citrate (Bicitra) 30 ml PO DAILY [facility] Stop: 09/05/18 19:29 Last Admin: 07/10/18 08:10 Dose: 30 ml Clopidogrel Bisulfate (Plavix) 75 mg PO DAILY [facility] Stop: 09/06/18 08:59 Last Admin: 07/10/18 08:10 Dose: 75 mg Dextrose (Glutose 40%) 18.75 gm PO PRN PRN PRN Reason: Blood Glucose less than 70 Stop: 09/05/18 09:19 Ferrous Sulfate (Iron) 325 mg PO BID [facility] Stop: 09/05/18 16:59 Last Admin: 07/10/18 08:10 Dose: 325 mg Dextrose (D5w) 1,000 mls @ 75 mls/hr IV .[id number] [facility] Stop: 09/06/18 13:59 Last Admin: 07/10/18 08:15 Dose: 75 mls/hr Ceftriaxone Sodium 1 gm/ (Dextrose) 50 mls @ 100 mls/hr IV Q24H [facility] Stop: 09/06/18 14:14 Last Admin: 07/10/18 14:13 Dose: 100 mls/hr Insulin Human Lispro (Humalog) 0 unit SUBQ DAILY [facility]; Protocol Stop: 09/04/18 20:29 Last Admin: 07/10/18 08:25 Dose: Not Given Lamotrigine (Lamictal) 50 mg PO DAILY [facility]; Protocol Stop: 09/06/18 08:59 Last Admin: 07/10/18 08:11 Dose: 50 mg Lorazepam (Ativan) 0.5 mg PO Q4HR PRN; Protocol PRN Reason: Anxiety Stop: 09/05/18 09:19 Last Admin: 07/09/18 09:45 Dose: 0.5 mg Magnesium Hydroxide (Milk Of Magnesia) 30 ml PO HS PRN PRN Reason: Constipation Stop: 09/05/18 09:19 Nystatin (Nystop) 100 units TP TID [facility] Stop: 09/07/18 09:59 Last Admin: 07/10/18 14:11 Dose: 100 units Pantoprazole Sodium (Protonix) 40 mg PO DAILY [facility] Stop: 09/06/18 08:59 Last Admin: 07/10/18 08:10 Dose: 40 mg Petrolatum (Zinc Oxide) 1 appl TP BID [facility] Stop: 09/05/18 16:59 Last Admin: 07/10/18 08:26 Dose: Not Given Quetiapine Fumarate (Seroquel) 25 mg PO BID [facility]; Protocol Stop: 09/05/18 16:59 Last Admin: 07/10/18 08:10 Dose: 25 mg Thiamine HCl (Vitamin B1) 100 mg PO DAILY [facility] Stop: 09/06/18 08:59 Last Admin: 07/10/18 08:10 Dose: 100 mg Vancomycin HCl (Vancomycin Oral) 250 mg PO QID [facility] Stop: 09/04/18 20:59 Last Admin: 07/10/18 14:06 Dose: Not Given Zolpidem Tartrate (Ambien) 5 mg PO HS PRN PRN Reason: Insomnia Stop: 09/05/18 09:19 Last Admin: 07/09/18 20:55 Dose: 5 mg General: No acute distress HEENT: Atraumatic, Mucous membr. moist/pink Neck: Supple, +2 carotid pulse wo bruit Cardiovascular: Regular rate, Normal S1, Normal S2 Lungs: Clear to auscultation Abdomen: Bowel sounds, Soft Extremities: no Edema Neurological: Sensation intact Skin: no Rash Psych/Mental Status: Mood NL Assessment/Plan - Assessment Assessment: SHEILA on CKD T2DM DJD Psychosis Microcytic Anemia Met Acid - Plan Plan: Lab - Result Diagrams 07/08/18 06:05 07/08/18 06:05 Current Medications Acetaminophen (Tylenol Children) 320 mg PO Q6H PRN PRN Reason: Pain (Mild) Stop: 09/05/18 21:24 Atorvastatin Calcium (Lipitor) 80 mg PO HS [facility]; Protocol Stop: 09/05/18 20:59 Last Admin: 07/07/18 22:24 Dose: 80 mg Cholecalciferol (Vitamin D3) 2,000 iu PO DAILY [facility] Stop: 09/06/18 08:59 Last Admin: 07/08/18 09:07 Dose: 2,000 iu Citric Acid/Sodium Citrate (Bicitra) 30 ml PO DAILY [facility] Stop: 09/05/18 19:29 Last Admin: 07/08/18 14:02 Dose: Not Given Clopidogrel Bisulfate (Plavix) 75 mg PO DAILY [facility] Stop: 09/06/18 08:59 Last Admin: 07/08/18 09:07 Dose: 75 mg Dextrose (Glutose 40%) 18.75 gm PO PRN PRN PRN Reason: Blood Glucose less than 70 Stop: 09/05/18 09:19 Ferrous Sulfate (Iron) 325 mg PO BID [facility] Stop: 09/05/18 16:59 Last Admin: 07/08/18 09:07 Dose: 325 mg Dextrose (D5w) 1,000 mls @ 75 mls/hr IV .[id number] [facility] Stop: 09/06/18 13:59 Insulin Human Lispro (Humalog) 0 unit SUBQ DAILY [facility]; Protocol Stop: 09/04/18 20:29 Last Admin: 07/08/18 09:06 Dose: Not Given Lamotrigine (Lamictal) 50 mg PO DAILY [facility]; Protocol Stop: 09/06/18 08:59 Last Admin: 07/08/18 09:07 Dose: 50 mg Lorazepam (Ativan) 0.5 mg PO Q4HR PRN; Protocol PRN Reason: Anxiety Stop: 09/05/18 09:19 Magnesium Hydroxide (Milk Of Magnesia) 30 ml PO HS PRN PRN Reason: Constipation Stop: 09/05/18 09:19 Pantoprazole Sodium (Protonix) 40 mg PO DAILY [facility] Stop: 09/06/18 08:59 Last Admin: 07/08/18 09:07 Dose: 40 mg Petrolatum (Zinc Oxide) 1 appl TP BID [facility] Stop: 09/05/18 16:59 Last Admin: 07/07/18 16:29 Dose: 1 appl Quetiapine Fumarate (Seroquel) 25 mg PO BID [facility]; Protocol Stop: 09/05/18 16:59 Last Admin: 07/08/18 09:06 Dose: 25 mg Thiamine HCl (Vitamin B1) 100 mg PO DAILY [facility] Stop: 09/06/18 08:59 Last Admin: 07/08/18 09:07 Dose: 100 mg Vancomycin HCl (Vancomycin Oral) 250 mg PO QID [facility] Stop: 09/04/18 20:59 Last Admin: 07/08/18 09:21 Dose: 250 mg Zolpidem Tartrate (Ambien) 5 mg PO HS PRN PRN Reason: Insomnia Stop: 09/05/18 09:19 Lab - Result Diagrams 07/10/18 05:00 07/10/18 10:51 Kidney fnc gradually improving w/ BUN/CR of 27/1.2 Stool for C. diff negative per nurse switch to D5W refusing lunch & meds UA suggestive of UTI, awaiting C/S start Rocephin FE Na 0.14% strong prerenal componenet WBC down to 12.6 f/u electrolytes, cbc Nutritional Asmnt/Malnutr-PDOC - Dietary Evaluation Malnutrition Findings (Please click <Entered> for more info): Nutritional Asmnt/Malnutrition Start: 07/08/18 15: 04 Text: Status: Complete Freq: Protocol: Document 07/08/18 15:04 LCHENG (Rec: 07/08/18 15:39 LCHENG [id number]) Nutritional Asmnt/Malnutrition Patient General Information Nutritional Screening High Risk Diagnosis dehydration Pertinent Medical Hx/Surgical Hx CKD, HTN, hyperlipidemia, DJD, DM, osteoporosis, a fib, distolic dysfunction Subjective Information Pt seen in bed on restrains, agitated and confused. Per nurse note, pt refused PO potassium. According to EMR, pt consumed 75% x 2 meals yesterday. Current Diet Order/ Nutrition Support pureed, nectar thick liquid Pertinent Medications lipitor, vit D3, iron, humalog , D5w, lamictal, protonix, k phos, vit B1, vancomycin Pertinent Labs 07/08 Na 150, K 3.4, Cl 116, BUN 38, Cr 1.5, Glu 150, POC 152 07/06 Na 150, Cl 118, BUN 44, Cr 1.9, Glu 142, POC 148 Nutritional Hx/Data Height 1.57 m Height (Calculated Centimeters) 157.5 Current Weight (lbs) 45.359 kg Weight (Calculated Kilograms) 45.4 Weight (Calculated Grams) 14705.2 [place] Body Weight 110 Body Mass Index (BMI) 18.3 Weight Status Underweight GI Symptoms GI Symptoms None Last BM 07/07 x 3 Difficult in: None Skin Integrity/Comment: intact. yarelis 14 Current %PO Good (75-100%) Estimated Nutritional Goals BEE in Kcals: Using Current wt Calories/Kcals/Kg 27-32 Kcals Calculated 8580-8383 Protein: Using Current wt Protein g/k Protein Calculated 50 Fluid: ml 1215-1440ml (1ml/kcal) Nutritional Problem 1. Problem Problem altered nutrition related labs Etiology electrolytes/fluid imbalance, hyperglycemia Signs/Symptoms: Na 150, K 3.4, Cl 116, BUN 38, Cr 1.5, Glu 150, POC 152 Malnutrition Alert Is there a minimum of two criteria No selected? Query Text:Check all the applicable criteria. A minimum of two criteria are recommended for diagnosis of either severe or non-severe malnutrition. Malnutrition Related to Morbid Obesity Malnutrition related to morbid obesity No Intervention/Recommendation Comments 1. Continue with pureed nectar thick diet as ordered. Recommend to add CCHO-60gm diet for optimal glycemic control. 2. Monitor PO intake, wt, labs and skin integrity 3. F/U as high risk in 2-3 days Expected Outcomes/Goals Expected Outcomes/Goals 1. PO intake to meet at least 75% of nutritional needs. 2. Wt stability, skin to remain intact, labs to approach WNL.
[2018-07-10] MEDS: Venelex 60gm Tube TP SCH (16:54)
[2018-07-11] MEDS: Vancomycin HCL 250 mg /10mL UDC PO SCH ×5 (00:01→22:11)
[2018-07-11] MEDS: NYSTATIN 100000 UNITS/GM POWD TP SCH ×3 (00:01→13:10)
--- NOTE | 2018-07-11 00:46 | Progress Notes ---
DATE: 07/10/2018 SUBJECTIVE: Case was discussed with staff of the patient, reviewed records. The patient continues to come in for Dr. Rodríguez. The patient is confused, demented, disoriented. She has no idea where she is. The patient continues to be medically ill, at times agitated. The patient is having hyponatremia. She is on IV fluid and acute kidney injury. She may have Clostridium difficile, diabetic, chronic ____ aggression. She is demented, confused, unable to make safe plan for self-care, so I would recommend the patient continue seeing the psychiatrist upon discharge. Thank you very much for allowing me to participate in the care of this most interesting lady. JOB# [id number]
[2018-07-11 06:34] LABS: % BASOPHILS 0.4 % (0.0-2.0); % EOSINOPHILS 3.3 % (0.0-5.0); % LYMPHOCYTES 14.4 % (20.0-50.0); % NEUTROPHILS 73.9 % (40.0-80.0); EOSINOPHILE ABSOLUTE 0.3 Th/cmm (0.1-0.4); HEMATOCRIT 32.2 % (41.0-60); HEMOGLOBIN 10.4 gm/dL (12-16); LYMPHOCYTE ABSOLUTE 1.5 Th/cmm (1.5-3.0); MEAN CELL VOLUME 80.3 fl (81-100); MEAN CORPUSCULAR HEMOGLOBIN 25.9 pg (27.0-31.0); MEAN CORPUSCULAR HGB CONC 32.3 pg (28.0-36.0); MEAN PLATELET VOLUME 9.2 fl; MONOCYTE ABSOLUTE 0.8 Th/cmm (0.3-1.0); NEUTROPHILE ABSOLUTE 7.9 Th/cmm (1.8-8.0); PLATELET COUNT 360 Th/cmm (150-400); RED BLOOD COUNT 4.01 Mil/cmm (3.80-5.20); RED CELL DISTRIBUTION WIDTH 23.1 % (11.5-20.0); WHITE BLOOD COUNT 10.5 Th/cmm (4.8-10.8)
[2018-07-11 07:14] LABS: ANION GAP 10.7 (7.0-16.0); BUN - UREA NITROGEN 20 mg/dL (7-25); CALCIUM SERUM 8.6 mg/dL (8.6-10.3); CARBON DIOXIDE 22.9 mEq/L (21.0-31.0); CHLORIDE 109 mEq/L (98-107); CREATININE - SERUM 1.1 mg/dL (0.6-1.2); GLUCOSE 113 mg/dL (70-105); POTASSIUM SERUM 3.6 mEq/L (3.5-5.1); SODIUM SERUM 139 mEq/L (136-145)
[2018-07-11] MEDS: Pantoprazole 40 mg/Packet PO SCH (08:56)
[2018-07-11] MEDS: Ferrous Sulfate 325 MG TAB PO SCH ×2 (08:56→22:10)
[2018-07-11] MEDS: INSULIN LISPRO 100 UNIT/ML VIAL SUBQ SCH (09:02)
[2018-07-11] MEDS: Venelex 60gm Tube TP SCH (09:24)
[2018-07-11] MEDS: Zinc Oxide Ointment 60 gm TP SCH ×2 (09:24→22:10)
[2018-07-11] MEDS: Dextrose 5% 1,000 ML IV SCH ×2 (16:52)
[2018-07-12] MEDS: NYSTATIN 100000 UNITS/GM POWD TP SCH ×3 (03:31→13:29)
[2018-07-12] MEDS: Dextrose 5% 1,000 ML IV SCH ×2 (05:08→18:53)
[2018-07-12] MEDS: Zinc Oxide Ointment 60 gm TP SCH ×2 (11:03→17:17)
[2018-07-12] MEDS: Venelex 60gm Tube TP SCH (11:03)
[2018-07-12] MEDS: Ferrous Sulfate 325 MG TAB PO SCH ×2 (11:04→17:28)
[2018-07-12] MEDS: Pantoprazole 40 mg/Packet PO SCH (11:04)
[2018-07-12] MEDS: INSULIN LISPRO 100 UNIT/ML VIAL SUBQ SCH (11:23)
--- NOTE | 2018-07-12 15:04 | Progress Notes ---
DATE: IDENTIFICATION: A 77-year-old female patient. SUBJECTIVE: The patient seen and examined. The patient is sitting in the chair. The patient is alert, more cooperative than yesterday, still has a loose BM. OBJECTIVE: VITAL SIGNS: Temperature 98.2, pulse 92, respiratory rate 19, blood pressure 132/70. HEENT: No facial asymmetry. Poor dentition noted. NECK: Supple, no JVD. HEART: Both heart sounds are regular. CHEST AND LUNGS: Equal in expansion, no expiratory wheezing. ABDOMEN: Soft. No guarding, no rigidity. Liver and spleen not palpable. EXTREMITIES: No edema. CLINICAL IMPRESSION: 1. Hypernatremia, resolved. 2. Acute kidney injury, improved. 3. Microcytic hypochromic anemia. 4. Psychotic disorder. 5. Degenerative joint disease. 6. Chronic atrial fibrillation. 7. Proteus mirabilis urinary tract infection. 8. Debility. 9. Decline in self-care and mobility. PLAN: 1. Diarrhea cruz, continue vancomycin for now. 2. The patient will be placed on IV Rocephin for urinary tract infection. 3. Decrease IV fluid to KVO 4. Nutritional support. 5. PT, OT. 6. General nursing care. 7. Follow lab. 8. Chronic disease management. 9. Care plan reviewed and discussed with staff. JOB# [id number]
[2018-07-12 22:03] VITALS: BP 131/69
[2018-07-13] MEDS: NYSTATIN 100000 UNITS/GM POWD TP SCH ×3 (06:40→13:55)
[2018-07-13 06:53] LABS: % EOSINOPHILS 6.3 % (0.0-5.0); % LYMPHOCYTES 15.1 % (20.0-50.0); % MONOCYTES 8.5 % (2.0-10.0); % NEUTROPHILS 70.1 % (40.0-80.0); EOSINOPHILE ABSOLUTE 0.5 Th/cmm (0.1-0.4); HEMOGLOBIN 10.1 gm/dL (12-16); LYMPHOCYTE ABSOLUTE 1.2 Th/cmm (1.5-3.0); MEAN CELL VOLUME 81.9 fl (81-100); MEAN CORPUSCULAR HEMOGLOBIN 25.9 pg (27.0-31.0); MEAN CORPUSCULAR HGB CONC 31.6 pg (28.0-36.0); MONOCYTE ABSOLUTE 0.7 Th/cmm (0.3-1.0); NEUTROPHILE ABSOLUTE 5.7 Th/cmm (1.8-8.0); PLATELET COUNT 428 Th/cmm (150-400); RED BLOOD COUNT 3.91 Mil/cmm (3.80-5.20); RED CELL DISTRIBUTION WIDTH 23.8 % (11.5-20.0); WHITE BLOOD COUNT 8.1 Th/cmm (4.8-10.8)
[2018-07-13 07:17] LABS: ALB/GLOB RATIO 0.9 (1.0-1.8); ALBUMIN 2.9 gm/dL (3.7-5.3); ALKALINE PHOSPHATASE 86 U/L (34-104); ANION GAP 15.7 (7.0-16.0); BILIRUBIN,TOTAL 0.6 mg/dL (0.3-1.0); BUN - UREA NITROGEN 15 mg/dL (7-25); CALCIUM SERUM 8.8 mg/dL (8.6-10.3); CARBON DIOXIDE 21.6 mEq/L (21.0-31.0); CHLORIDE 109 mEq/L (98-107); CREATININE - SERUM 1.1 mg/dL (0.6-1.2); GLUCOSE 133 mg/dL (70-105); POTASSIUM SERUM 3.3 mEq/L (3.5-5.1); SGOT 13 U/L (13-39); SGPT/ALT 12 U/L (7-52); SODIUM SERUM 143 mEq/L (136-145); TOTAL PROTEIN,SERUM 6.2 gm/dL (6.0-8.3)
[2018-07-13] MEDS: INSULIN LISPRO 100 UNIT/ML VIAL SUBQ SCH (09:09)
[2018-07-13] MEDS: Venelex 60gm Tube TP SCH (10:08)
[2018-07-13] MEDS: Ferrous Sulfate 325 MG TAB PO SCH (10:08)
[2018-07-13] MEDS: Zinc Oxide Ointment 60 gm TP SCH (10:08)
[2018-07-13] MEDS: Pantoprazole 40 mg/Packet PO SCH (10:09)
--- NOTE | 2018-07-13 12:32 | Progress Notes ---
DATE: 07/12/2018 SUBJECTIVE: The patient is seen and examined. The patient is sitting in the chair. No new event. PHYSICAL EXAMINATION: VITAL SIGNS: Temperature 98.7, pulse 55, respiratory rate 18, blood pressure 120/67. HEENT: No facial asymmetry. NECK: Supple, no JVD. HEART: Regular. CHEST AND LUNGS: Equal in expansion, no expiratory wheezing. ABDOMEN: Soft. EXTREMITIES: No edema. NEUROLOGIC: Alert, awake, not following any commands. AVAILABLE DIAGNOSTIC DATA: None for my review. CLINICAL IMPRESSION: 1. Hypernatremia, resolved. 2. Acute kidney injury, better. 3. Chronic atrial fibrillation. 4. Hypertension. 5. History of cerebrovascular accident. 6. Degenerative joint disease. 7. Alzheimer's dementia. 8. Psychotic disorder. 9. Proteus mirabilis urinary tract infection. PLAN: 1. Continue current medication as prescribed. 2. Discharge planning to lower level of care. 3. General nursing care. 4. Nutritional support. 5. Fall precautions. 6. Chronic disease management. 7. Symptoms management. 8. Medication management. 9. Care plan reviewed and discussed with staff. JOB# [id number]
--- NOTE | 2018-07-13 16:44 | Consultation ---
DATE OF CONSULTATION: 07/12/2018 PLACE: [facility], room #8. PRIMARY DOCTOR: Steven William MD. I am doing follow up for Dr. Galaviz for renal evaluation. HISTORY OF PRESENT ILLNESS: This patient who does have multiple medical problems was admitted for chronic kidney disease, essential hypertension, dyslipidemia, osteoarthritis with osteoporosis and chronic atrial fibrillation with compensated congestive heart failure with diastolic dysfunction. The patient also happens to have a history of psychosis. The patient while examining had been talking to herself. The patient is not violent, but the patient at present is in restraints, reason for this is not very clear, not able to communicate well. Responsiveness is not good. Hydration is fairly okay. PHYSICAL EXAMINATION: NECK: Jugular venous pressure is not raised. CHEST: Reveals good air entry at present time. No significant rales noted. Few rhonchi noticed. CARDIOVASCULAR: Heart sounds S1 and S2, relatively normally heard. No bruit or systolic murmurs were noticed. ABDOMEN: No significant edema noted. EXTREMITIES: Skin turgor in the lower extremities is reasonable. NEUROLOGIC: Considering the fact that the patient does not know where she is she keeps on talking to herself. Suggest underlying some mental disorder. VITAL SIGNS: The patient's vitals today had been as follows: Blood pressure last 119/67, temperature is 98.7, heart rate is about 55 per minute, respiratory rate 18 per minute and O2 saturation 98%. LABORATORY DATA: The patient's biochemical data reveals the following: Sodium today was not done, yesterday was 139, potassium 3.6, chloride 109, CO2 content 22.9, BUN 20, creatinine 1.1, glucose 113 and calcium 8.6. Liver enzymes are essentially normal. Albumin 2.9 on 07/10/2018. CBC reveals hemoglobin to be 10.4 grams percent, WBC count 10.5 thousand, platelet count 360, band neutrophils 0 and differential seems to be normal. IMPRESSION: Considering the fact these things, it seems that the BUN and creatinine are improving over the last 2-3 days. The patient is making gradual progress, but renal function is concerned. Hydration seems to be okay, so I would not change anything. I reviewed the medications, which include multiple medications including Lipitor 80 mg p.o. at bedtime; Rocephin 1 gram daily; cholecalciferol 2000 International units; Bicitra, reasons not known; Plavix 75 mg p.o. daily; Ativan p.r.n. 0.5 mg; milk of magnesia for constipation; pantoprazole sodium 40 mg p.o. daily; Seroquel 25 mg p.o. b.i.d. along with thiamine, hydrochloride, vitamin B12 and 5 mg p.o. at bedtime p.r.n. zolpidem for sleeping purposes. [facility]# [id number]
--- NOTE | 2018-07-13 20:40 | Progress Notes ---
DATE: 07/13/2018 IDENTIFICATION: A 77-year-old female. SUBJECTIVE: The patient is seen and examined. The patient is lying in the bed, unable to understand her, but gets agitated at times. The patient remained hemodynamically stable, no significant diarrhea. PHYSICAL EXAMINATION: VITAL SIGNS: Temperature 98.2, pulse 52, respiratory rate 18, blood pressure 136/64. HEENT: No facial asymmetry. Multiple absent teeth noted. NECK: Supple, no JVD. HEART: Regular. CHEST AND LUNGS: Equal in expansion, no expiratory wheezing. ABDOMEN: Soft. No guarding, no rigidity. Bowel sounds present. No hepatomegaly. EXTREMITIES: No edema. NEUROLOGIC: Alert, awake, follows command, moving upper and lower extremities without any difficulty. AVAILABLE DIAGNOSTIC DATA: Has been reviewed. CLINICAL IMPRESSION: 1. Proteus mirabilis urinary tract infection. 2. Hypokalemia. 3. Hypernatremia, resolved. 4. Diarrhea, improving. 5. Acute kidney injury, resolved. 6. Chronic atrial fibrillation. 7. Diabetes mellitus. 8. Microcytic hypochromic anemia. 9. Degenerative joint disease. 10. Hypertension. 11. Diastolic dysfunction. 12. High risk for fall. 13. Alzheimer's dementia. 14. Psychotic disorder. PLAN: 1. Replace potassium. 2. Continue IV antibiotic. 3. The patient is medically stable for discharge to lower level of care. 4. Continue current medication as prescribed. 5. Symptoms management. 6. Medication management. 7. Care plan reviewed and discussed with staff and assigned RN. JOB# [id number]
== END 2018-07-13 16:02 | DRG 640 ==
LOC: MSI 12:05
PROVIDERS: ADMIT Internal Medicine; ATTEND Internal Medicine
DX: E86.0 Dehydration (principal); N17.0 Acute kidney failure with tubular necrosis; N39.0 Urinary tract infection, site not specified; I50.32 Chronic diastolic (congestive) heart failure; I13.0 Hypertensive heart and chronic kidney disease with heart failure and stage 1 through stage 4 chronic kidney disease, or unspecified chronic kidney disease; E44.0 Moderate protein-calorie malnutrition; E87.0 Hyperosmolality and hypernatremia; E87.2 Acidosis; R19.7 Diarrhea, unspecified; M19.90 Unspecified osteoarthritis, unspecified site; E78.5 Hyperlipidemia, unspecified; M81.0 Age-related osteoporosis without current pathological fracture; E11.22 Type 2 diabetes mellitus with diabetic chronic kidney disease; I48.2 Chronic atrial fibrillation; F29 Unspecified psychosis not due to a substance or known physiological condition; R00.1 Bradycardia, unspecified; D63.8 Anemia in other chronic diseases classified elsewhere; N18.3 Chronic kidney disease, stage 3 (moderate); D50.9 Iron deficiency anemia, unspecified; G30.9 Alzheimer's disease, unspecified; F02.80 Dementia in other diseases classified elsewhere, unspecified severity, without behavioral disturbance, psychotic disturbance, mood disturbance, and anxiety; B96.4 Proteus (mirabilis) (morganii) as the cause of diseases classified elsewhere; Z86.73 Personal history of transient ischemic attack (TIA), and cerebral infarction without residual deficits; Z68.26 Body mass index [BMI] 26.0-26.9, adult; Z91.81 History of falling; Z88.1 Allergy status to other antibiotic agents; Z88.0 Allergy status to penicillin; Z91.018 Allergy to other foods
CPT/HCPCS: 36415-UA; 80048-TC; 80053-TC; 81001-TC; 81015-TC; 82043-90; 82570-TC; 82948-90; 83735-TC; 83935-90; 84100-TC; 84300-TC; 84443-TC; 84550-TC; 85007-TC; 85025-TC; 87086-90; 90799; J0696; J3370; J7042; J7070; Z7610